=== PATIENT | male | born 1960 | race African-American/Black ===

== ENCOUNTER 2022-10-18 16:56 | Inpatient (IN) | payer MEDICARE ==
[~2022-10-18] VITALS: Ht 170.2 cm; Wt 63.5 kg
--- NOTE | 2022-10-18 17:10 | NUR ---
Patient AOx4 able to express his concerns. States he has shayla feeling warm, ?'s fevers. Patient with an ostomy in place left abdomen. Suprapubic catheter in place, states he has noticed blood in duke. Some blood visibe under the right hip/buttock, patient states he has a wound. Patient states he lives at home and has a caregiver.
[2022-10-18] MEDS: CIPROFLOXACIN IV RTU 400 MG in PREMIX 1 EA IV SCH ×2 (17:30→18:40)
[2022-10-18] MEDS ORDERED: IV NS 0.9% 1,000 ML IV ONE (17:30)
--- NOTE | 2022-10-18 18:01 | NUR ---
IV placed on right upper arm, 20g. No signs of infiltration.
[2022-10-18 18:05] LABS: BASOPHILS # (AUTO) 0.1 K/uL (0.0-0.2); BASOPHILS % (AUTO) 0.4 % (0.0-2.0); EOSINOPHILS % (AUTO) 2.1 % (0.0-6.0); HEMATOCRIT 38 % (39-51); HEMOGLOBIN 11.6 g/dL (13.5-17.5); LYMPHOCYTES # (AUTO) 0.3 K/uL (0.8-4.8); LYMPHOCYTES % (AUTO) 1.5 % (20.0-44.0); MEAN CORPUSCULAR HGB CONC 31 g/dl (31.0-36.0); MEAN CORPUSCULAR VOLUME 79 fL (80-96); MONOCYTES # (AUTO) 1.1 K/uL (0.1-1.30); MONOCYTES % (AUTO) 5.2 % (2.0-12.0); NEUTROPHILS # (AUTO) 19.6 K/uL (1.8-8.9); NEUTROPHILS % (AUTO) 90.8 % (43.0-81.0); PLATELET COUNT (AUTO) 171 K/uL (150-450); RED BLOOD CELL COUNT(AUTO) 4.76 MIL/uL (4.5-6.0); WHITE BLOOD COUNT (AUTO) 21.6 K/uL (4.3-11.0)
[2022-10-18 18:15] LABS: BILIRUBIN,URINE NEGATIVE (NEGATIVE); COLOR,URINE YELLOW (YELLOW); LEUKOCYTE ESTERASE ,URINE 2+ (NEGATIVE); NITRITE, URINE POSITIVE (NEGATIVE); PH,URINE 8.5 (5.0-8.0); PROTEIN,URINE 2+ mg/dl (NEGATIVE); UGLUCOSE NEGATIVE (NEGATIVE)
[2022-10-18 18:17] LABS: BACTERIA,URINE Moderate /HPF (None Seen); SQUAMOUS EPITHELIAL CELL,UR Few /HPF (None Seen)
--- NOTE | 2022-10-18 18:29 | NUR ---
urine collected and sent to lab
--- NOTE | 2022-10-18 18:30 | NUR ---
Called pharmacy x2, pharmacy states they are waiting on line maintenance technician to mix med.
--- NOTE | 2022-10-18 19:05 | NUR ---
REC'D REPORT FROM LETA REIS FOR OLLIE
[2022-10-18 19:07] LABS: CALCIUM, SERUM 8.1 mg/dL (8.5-10.1); CREATININE 2.9 mg/dL (0.6-1.3); POTASSIUM 4.7 mmol/L (3.5-5.1)
--- NOTE | 2022-10-18 19:19 | NUR ---
Hand off report given to Delma for continuity of care
[2022-10-18] MEDS ORDERED: MAGNESIUM HYDROXIDE 30 ML UDC PO PRN (22:00)
[2022-10-18] MEDS ORDERED: ACETAMINOPHEN 325 MG TABLET PO PRN (22:00)
[2022-10-18] MEDS ORDERED: MAG HYDROX/AL HYDROX/SIMETH 30 ML UDC PO PRN (22:00)
[2022-10-18] MEDS ORDERED: ZOLPIDEM TARTRATE 5 MG TABLET PO PRN (22:00)
[2022-10-18] MEDS ORDERED: HYDROCODONE/APAP 5/325MG TABLET PO PRN (22:00)
[2022-10-18] MEDS ORDERED: Z GUARD REMEDY 4 OZ OINT TP PRN (22:00)
[2022-10-18] MEDS ORDERED: ONDANSETRON HCL/PF 4 MG/2 ML VIAL IVP PRN (22:00)
--- NOTE | 2022-10-18 22:19 | NUR ---
REPORT GIVEN TO VINICIO, RN FOR OLLIE
[2022-10-18 22:30] VITALS: BP 122/56
--- NOTE | 2022-10-18 23:00 | NUR ---
MS QUAD STAYER NOTES - RECEIVED PATIENT FROM ED AT 2228 VIA GURNEY UNDER THE CARE OF IZAIAH DOSS NP WITH DX OF SEPSIS. PATIENT IS A/O X4, FORGETFUL. VERBALIZED HIS BROTHER HAS POA AND HIS ADVANCE DIRECTIVE. BREATHING EVEN AND NON-LABORED ON ROOM AIR. NOT IN APPARENT DISTRESS. DENIES PAIN AT THIS TIME. HAS RIGHT UPPER ARM IV ACCESS #20G AND SALINE LOCKED. NO S/S OF INFILTRATION NOTED. VITAL SIGNS TAKEN AND PHYSICAL ASSESSMENT DONE. RIGHT BUTTOCK PRESSURE INJURY WITH SOILED DRESSING NOTED. HAS SUPRAPUBIC FERRARA CATHETER AND LEFT UPPER QUADRANT COLOSTOMY BAG. ORIENTED PATIENT TO UNIT AND STAFF. ALL BELONGINGS ACCOUNTED FOR. SAFETY PRECAUTIONS IN PLACE: BED LOCKED AND IN LOW POSITION, SIDE RAILS UP X3, CALL LIGHT WITHIN REACH. WILL CONTINUE PLAN OF CARE.
[2022-10-18] MEDS: IV NS 0.9% 1,000 ML IV PRN (23:39)
[2022-10-18] MEDS ORDERED: BACL20TA PO (23:47)
--- NOTE | 2022-10-19 00:20 | NUR ---
PER HOSPITALIST ROMARIO, PATIENT WILL BE ON [facility] THERAPY. NOTED AND CARRIED OUT. CALLED [facility] AND SPOKE WITH MAYKEL TO UPDATE EMAR.
[2022-10-19 05:08] VITALS: BP 136/74
[2022-10-19 05:29] VITALS: BP 136/74
--- NOTE | 2022-10-19 07:00 | NUR ---
MS RN CLOSING NOTES - PATIENT RESTING IN BED, ABLE TO VERBALIZE NEEDS. NO CARDIAC OR RESPIRATORY DISTRESS NOTED. AFEBRILE. NO C/O PAIN AT THIS TIME. RIGHT UPPER ARM IV ACCESS INTACT, PATENT AND FLUSHING. CLOUDY KOLE URINE OUTPUT AND SOFT STOOL NOTED. RIGHT FEMORAL WOUND AND PERINEAL CARE RENDERED. ALL DUE MEDS GIVEN AND NEEDS ATTENDED. SAFETY PRECAUTIONS MAINTAINED. WILL ENDORSE TO NEXT SHIFT FOR OLLIE.
--- NOTE | 2022-10-19 07:20 | NUR ---
MS RN OPENING NOTES RECEIVED PATIENT LYING IN BED, AOX3-4 WITH SOME CONFUSION/FORGETFULNESS, ABLE TO VERBALIZE NEEDS. ON ROOM AIR WITHOUT DIFFICULTY, NO ACUTE CARDIAC OR RESPIRATORY DISTRESS NOTED AT THIS TIME, AFEBRILE. DENIES PAIN OR DISCOMFORT AT THIS TIME. IV ACCESS ON RIGHT UPPER ARM G#20, PATENT AND FLUSHING WELL. NO INFILTRATION NOTED. WITH SUPRAPUBIC CATHETER WITH INTACT DRESSING DRAINING CLOUDY KOLE URINE VIA GRAVITY. COLOSTOMY DRAINING LIQUID STOOL AT THIS MOMENT. SAFETY AND ASPIRATION PRECAUTIONS IN PLACE: BED IN LOWEST AND LOCKED POSITION, HOB ELEVATED 40 DEGREES, SIDE RAILS UP X2, CALL LIGHT WITHIN REACH. WILL MONITOR DURING MY SHIFT.
[2022-10-19 08:00] VITALS: BP 115/75
[2022-10-19] MEDS ORDERED: LEVOFLOXACIN 750 MG /D5W 150ML 750 MG in PREMIX 1 EA IV SCH (09:00)
[2022-10-19] MEDS: PANTOPRAZOLE 40 MG VIAL IV SCH (09:01)
--- NOTE | 2022-10-19 09:59 | NUR ---
RN NOTES PATIENT WAS SEEN BY WOUND CARE NURSE, TREATMENT DONE - DVT PUMP/SCD APPLIED ON BOTH LEGS WITH FOAM TO PROTECT BONY PARTS AROUND KNEES CHANGED COLOSTOMY BAG
--- NOTE | 2022-10-19 10:12 | NUR ---
WOUND CARE CONSULT: PT PRESENTS EXTREMELY THIN AND BONY WITH STAGE 4 PRESSURE ULCER TO RT BUTTOCK, EXTENSIVE SCARRING TO BACK, RT AND LEFT BUTTOCK AND SACRUM, DISCOLORATION/SCARRING TO LOWER EXTREMITIES, SUPRAPUBIC CATH AND COLOSTOMY NOTED, ALL PRESENT ON ADMISSION. DR LEWIS CALLED FOR SURGICAL CONSULT. FIRST STEP LOW AIRLOSS MATTRESS IS ON ORDER. DIETARY CONSULT IN PLACE. IN AGREEMENT WITH PLAN OF CARE. Addendum: 10/19/22 at 1014 by RAJ MACIEL WNDNU Amended: Links added.
--- NOTE | 2022-10-19 11:39 | NUR ---
RN NOTES - ARJUN AMADOR AT BEDSIDE WITH PATIENT, AWARE THAT AR/ER ON FILE (BROTHER SENTHIL) IS . ANOTHER BROTHER, KEVIN, IS THE DPOA. WILL WAIT FOR THE CALL BACK AND WILL GET THE NUMBER AND WILL GIVE TO CM AND WILL UPDATE FILE. Addendum: 10/19/22 at 1407 by LANETTE IGNACIO RN GAVE ARJUN AMADOR # OF DEVORA RENTERIAER. CM TO GIVE EMAIL ADDRESS SO BROTHER CAN SEND DP PAPERWORKS.
[2022-10-19] MEDS: ENSURE ENLIVE 237 ML LIQUID (VANILLA) PO SCH ×2 (11:49→16:14)
--- NOTE | 2022-10-19 13:14 | NUR ---
RN NOTES - URINE SPECIMEN COLLECTED, PLACED IN THE FRIDGE, CALLED LAB TO SAMPLE GRINDER
--- NOTE | 2022-10-19 13:15 | NUR ---
RN NOTES - CONSENTS SECURED FOR WOUND DEBRIDEMENT OF RIGHT ISCHIUM WITH LETA SAPP.
--- NOTE | 2022-10-19 13:16 | NUR ---
RN NOTES - CALLED ADMITTING TO UPDATE JEFF KEVIN Clayton LOZOAYER ([phone]) AR/ER.
[2022-10-19] MEDS: IV NS 0.9% 1,000 ML IV PRN (13:45)
--- NOTE | 2022-10-19 14:05 | NUR ---
RN NOTES - CONTACTED DR MILLER ABOUT BACLOFEN, APPROVED TO CONTINUE, TO SENT TO PHARMACY - FILED IN THE CHART.
[2022-10-19 14:08] LABS: BASOPHILS % (AUTO) 0.1 % (0.0-2.0); EOSINOPHILS % (AUTO) 0.5 % (0.0-6.0); HEMATOCRIT 32 % (39-51); LYMPHOCYTES # (AUTO) 0.3 K/uL (0.8-4.8); LYMPHOCYTES % (AUTO) 2.1 % (20.0-44.0); MEAN CORPUSCULAR HGB CONC 31 g/dl (31.0-36.0); MEAN CORPUSCULAR VOLUME 78 fL (80-96); MONOCYTES # (AUTO) 0.5 K/uL (0.1-1.30); MONOCYTES % (AUTO) 3.4 % (2.0-12.0); NEUTROPHILS # (AUTO) 13.3 K/uL (1.8-8.9); NEUTROPHILS % (AUTO) 93.9 % (43.0-81.0); PLATELET COUNT (AUTO) 145 K/uL (150-450); RED BLOOD CELL COUNT(AUTO) 4.12 MIL/uL (4.5-6.0); WHITE BLOOD COUNT (AUTO) 14.1 K/uL (4.3-11.0)
[2022-10-19 14:53] LABS: CALCIUM, SERUM 8.4 mg/dL (8.5-10.1); CREATININE 2.6 mg/dL (0.6-1.3); MAGNESIUM 1.4 mg/dL (1.8-2.4); PHOSPHORUS 3.8 mg/dL (2.5-4.9)
[2022-10-19 14:56] LABS: BILIRUBIN,URINE NEGATIVE (NEGATIVE); COLOR,URINE YELLOW (YELLOW); LEUKOCYTE ESTERASE ,URINE 3+ (NEGATIVE); NITRITE, URINE POSITIVE (NEGATIVE); PH,URINE 6.5 (5.0-8.0); PROTEIN,URINE 2+ mg/dl (NEGATIVE); UGLUCOSE 1+ mg/dL (NEGATIVE); UROBILINOGEN,URINE 0.2 EU/dL (0.2)
[2022-10-19 15:26] LABS: BACTERIA,URINE Many /HPF (None Seen); SQUAMOUS EPITHELIAL CELL,UR Few /HPF (None Seen)
[2022-10-19 15:27] LABS: WBC,URINE 81-100 /HPF (0-3)
--- NOTE | 2022-10-19 15:32 | NUR ---
RN NOTES - RECEIVED A CALL FROM PHARMACY ABOUT: LACTIC ACID - 3.6 (TRENDING DOWN) PROCALCITONIN - 135.[address] MILLER RIGHT AWAY.
[2022-10-19 15:38] LABS: CREATININE, URINE 42.3 MG/DL (30.0-125.0)
[2022-10-19 15:42] LABS: BILIRUBIN,DIRECT 0.2 mg/dL (0.0-0.2); BILIRUBIN,TOTAL 0.4 mg/dL (0.2-1.0)
--- NOTE | 2022-10-19 15:55 | NUR ---
RN NOTES - PT REPORTS DIZZINESS WHEN HOB IS ELEVATED EVEN SLIGHTLY, GOES INTO HYPOTENSION LOW 80/60 - PT MENTIONS THIS IS HIS BASELINE BUT IT INTERRUPTS HIS SLEEP - HE WAKES UP FEELING OVERWHELMED. WHEN LYING FLAT, BLOOD PRESSURE GOES BACK TO 120S/90S. MD IS AWARE - ORDERED TO INCREASE NS @100 ML/HR FROM 75 ML/HR. CARRIED OUT.
[2022-10-19 16:00] VITALS: BP 100/72
[2022-10-19] MEDS: BACLOFEN (10 MG) 10 MG TABLET PO PRN (16:14)
--- NOTE | 2022-10-19 17:21 | NUR ---
RN NOTES - PATIENT TEMP IS 99.2, REMOVED A LAYER OR BLANKET AND GAVE TYLENOL 650 MG PO ORDERED. WILL CONTINUE TO MONITOR.
--- NOTE | 2022-10-19 18:08 | NUR ---
RN NOTES - TEMPERATURE IS 98.2, NO FEVER
--- NOTE | 2022-10-19 18:46 | NUR ---
MS RN CLOSING NOTES PATIENT LYING IN BED, AWAKE, ALERT AOX4, ABLE TO VERBALIZE NEEDS. STILL ON ROOM AIR WITHOUT DIFFICULTY, AFEBRILE. NO PAIN OR DISCOMFORT. IVF NS @ 100 ML/HR INFUSING ON SHANNA G#20 ACCESS. URINE IS STILL CLOUDY, DRAINED ABOUT 350 ML.COLOSTOMY CHANGED ONCE DURING MY SHIFT. ALL NEEDS MET, ALL DUE MEDS GIVEN. SAFETY AND ASPIRATION PRECAUTIONS MAINTAINED: BED IN LOWEST AND LOCKED POSITION, HOB ELEVATED 40 DEGREES, SIDE RAILS UP X2, CALL LIGHT WITHIN REACH. REPOSITIONED AND OFFLOADED Q2H. WILL ENDORSE TO BRICK CLEANER NURSE.
--- NOTE | 2022-10-19 20:00 | NUR ---
RN OPENING NOTE RECEIVED PATIENT LYING IN BED; AWAKE, ALERT AND ORIENTED X 4. ABLE TO VERBALIZE NEEDS. ON ROOM AIR; TOLERATING WELL. FEBRILE. COOLING MEASURES INITIATED; PLACED ICE PACK ON ARMPIT. NO C/O PAIN OR DISCOMFORT. WITH IV ACCESS ON RIGHT UPPER ARM 20g; PATENT AND INTACT INFUSING WITH NS 1L RUNNING @ 100 ML/HR; FLUSHES WELL. WITH FERRARA CATHETER IN PLACE DRAINING BY GRAVITY TO CLOUDY YELLOW URINE OUTPUT. WITH COLOSTOMY ON LEFT UPPER QUADRANT; INTACT. SAFETY PRECAUTIONS IMPLEMENTED: CALL LIGHT AND TABLE WITHIN REACH, SIDE RAILS UP X 3, BED IN LOWEST LOCKED POSITION. WILL CONTINUE TO MONITOR THROUGHOUT SHIFT.
[2022-10-19 20:18] VITALS: BP 148/84
[2022-10-19] MEDS: THERAHONEY GEL 1.5 OZ TUBE TP SCH (21:06)
--- NOTE | 2022-10-19 21:30 | NUR ---
RN NOTE TEMP RECHECKED. AFEBRILE. 98.7. WILL CONTINUE TO MONITOR PT.
[2022-10-20] MEDS: IV NS 0.9% 1,000 ML IV PRN ×2 (04:03→14:27)
--- NOTE | 2022-10-20 07:00 | NUR ---
RN CLOSING NOTE PATIENT LYING IN BED; AWAKE, A/O X 4. STABLE ON ROOM AIR. IN NO ACUTE DISTRESS. WITH IV ACCESS ON RIGHT UPPER ARM 20g; PATENT AND INTACT INFUSING WITH NS 1L RUNNING @ 100 ML/HR; FLUSHES WELL. WITH FERRARA CATHETER IN PLACE DRAINING BY GRAVITY TO YELLOW URINE OUTPUT. WITH COLOSTOMY ON LEFT UPPER QUADRANT; INTACT. SAFETY PRECAUTIONS IN PLACE: CALL LIGHT AND TABLE WITHIN REACH, SIDE RAILS UP X 3, BED IN LOWEST LOCKED POSITION. ENDORSED TO MORNING SHIFT FOR OLLIE.
--- NOTE | 2022-10-20 07:15 | NUR ---
MS GILLETTE OPENING NOTES RECEIVED PATIENT LYING IN BED, AOX4, ON ROOM AIR WITHOUT DIFFICULTY, NO ACUTE CARDIAC OR RESPIRATORY DISTRESS NOTED AT THIS TIME, AFEBRILE. ABLE TO VERBALIZE NEEDS. DENIES PAIN AT THIS TIME. REPORTS OF FEELING COLD, COVERED PATIENT WITH WARM BLANKETS AND TURNED THE HEATER UP. IV ACCESS ON RIGHT UPPER ARM G#20, PATENT AND FLUSHING WELL. NO INFILTRATION NOTED. WITH SUPRAPUBIC CATHETER WITH INTACT DRESSING DRAINING LIGHT YELLOW URINE VIA GRAVITY. COLOSTOMY CLEAN AND INTACT, NO STOOL VISIBLE AT THIS MOMENT. SAFETY AND ASPIRATION PRECAUTIONS IN PLACE: BED IN LOWEST AND LOCKED POSITION, HOB ELEVATED 40 DEGREES, SIDE RAILS UP X2, CALL LIGHT WITHIN REACH. WILL MONITOR DURING MY SHIFT. Addendum: 10/20/22 at 0808 by LANETTE IGNACIO RN PATIENT IS ON LOW AIR LOSS MATTRESS
[2022-10-20 08:26] VITALS: BP 113/77
[2022-10-20] MEDS: ENSURE ENLIVE 237 ML LIQUID (VANILLA) PO SCH ×3 (08:32→17:04)
[2022-10-20] MEDS: PANTOPRAZOLE 40 MG VIAL IV SCH (08:34)
[2022-10-20] MEDS: THERAHONEY GEL 1.5 OZ TUBE TP SCH (08:48)
[2022-10-20 09:20] LABS: CALCIUM, SERUM 8.3 mg/dL (8.5-10.1); CREATININE 2.3 mg/dL (0.6-1.3); MAGNESIUM 1.4 mg/dL (1.8-2.4); PHOSPHORUS 3.2 mg/dL (2.5-4.9); POTASSIUM 4.3 mmol/L (3.5-5.1)
[2022-10-20 09:34] LABS: BASOPHILS % (AUTO) 0.2 % (0.0-2.0); EOSINOPHILS % (AUTO) 3.5 % (0.0-6.0); HEMATOCRIT 30 % (39-51); HEMOGLOBIN 9.4 g/dL (13.5-17.5); LYMPHOCYTES # (AUTO) 0.1 K/uL (0.8-4.8); LYMPHOCYTES % (AUTO) 1.8 % (20.0-44.0); MEAN CORPUSCULAR HGB CONC 32 g/dl (31.0-36.0); MEAN CORPUSCULAR VOLUME 78 fL (80-96); MONOCYTES # (AUTO) 0.1 K/uL (0.1-1.30); MONOCYTES % (AUTO) 1.3 % (2.0-12.0); NEUTROPHILS # (AUTO) 5.3 K/uL (1.8-8.9); NEUTROPHILS % (AUTO) 93.2 % (43.0-81.0); PLATELET COUNT (AUTO) 122 K/uL (150-450); RED BLOOD CELL COUNT(AUTO) 3.84 MIL/uL (4.5-6.0); WHITE BLOOD COUNT (AUTO) 5.7 K/uL (4.3-11.0)
[2022-10-20] MEDS: BACLOFEN (10 MG) 10 MG TABLET PO PRN (14:36)
--- NOTE | 2022-10-20 15:05 | NUR ---
RN NOTES - PATIENT REPORTS THAT HE IS AFRAID OF DOZING OFF BECAUSE HE FEELS LIKE HE IS DYING, REASSURED PT THAT HIS VITALS ARE STABLE AND THAT HE IS ON OXYGEN, ASKED MD FOR ANTI-ANXIETY MEDS BUT PT MENTIONED HE DOESNT WANT ANYTHING THAT WILL MAKE HIM FEEL RELAXED BECAUSE HE IS LOSING CONTROL. MADE MD AWARE.
--- NOTE | 2022-10-20 15:22 | NUR ---
RN NOTES - MD ORDERED PSYCH CONSULT - FACESHEET FAXED TO [facility]
[2022-10-20 16:05] VITALS: BP 96/64
--- NOTE | 2022-10-20 18:45 | NUR ---
MS RN CLOSING NOTES PATIENT LYING IN BED, AWAKE, ALERT AOX4, ABLE TO VERBALIZE NEEDS. ON 1LPM OXYGEN VIA NC FOR COMFORT, SATURATING AT 98% WITHOUT DIFFICULTY. AFEBRILE. NO PAIN OR DISCOMFORT AT THIS TIME. IVF NS @ 100 ML/HR INFUSING ON SHANNA G#20 ACCESS. URINE IS CLEAR, DRAINED ABOUT 550 ML. COLOSTOMY CHANGED ONCE DURING MY SHIFT. ON LOW AIR LOSS MATTRESS. ALL NEEDS MET, ALL DUE MEDS GIVEN. SAFETY AND ASPIRATION PRECAUTIONS MAINTAINED: BED IN LOWEST AND LOCKED POSITION, SIDE RAILS UP X2, CALL LIGHT WITHIN REACH. REPOSITIONED AND OFFLOADED Q2H. WILL ENDORSE TO WOOD CABINETMAKER NURSE.
--- NOTE | 2022-10-20 19:40 | NUR ---
RN OPENING NOTE RECEIVED PATIENT IN BED; AWAKE, ALERT AND ORIENTED X 4. ABLE TO VERBALIZE NEEDS. ON ROOM AIR; TOLERATING WELL. AFEBRILE. NOT IN ANY FORM OF RESPIRATORY OR CARDIAC DISTRESS. NO C/O PAIN OR DISCOMFORT. WITH IV ACCESS ON RIGHT UPPER ARM 20g; PATENT AND INTACT INFUSING WITH NS 1L RUNNING @ 100 ML/HR; FLUSHING WELL. WITH SUPRAPUBIC FERRARA CATHETER IN PLACE DRAINING BY GRAVITY TO CLEAR YELLOW URINE OUTPUT. WITH COLOSTOMY ON LEFT UPPER QUADRANT; INTACT. SAFETY PRECAUTIONS IMPLEMENTED: CALL LIGHT AND TABLE WITHIN REACH, SIDE RAILS UP X 3, BED IN LOWEST LOCKED POSITION. WILL CONTINUE TO MONITOR THROUGHOUT SHIFT.
[2022-10-20 20:00] VITALS: BP 115/70
[2022-10-20 23:23] LABS: BAND % (MANUAL) 6 % (0.0-5.0); BASOPHILS % (MANUAL) 0 % (0.0-2.0); EOSINOPHILS % (MANUAL) 5 % (0-4); LYMPHOCYTES % (MANUAL) 3 % (16-48); MONOCYTES % (MANUAL) 2 % (0-11.0); NEUTROPHILS % (MANUAL) 84 (42-76)
[2022-10-21] MEDS: IV NS 0.9% 1,000 ML IV PRN ×2 (01:38→14:09)
--- NOTE | 2022-10-21 06:45 | NUR ---
RN CLOSING NOTE PATIENT LYING IN BED; AWAKE, A/O X 4. ON O2 INHALATION @ 1 LPM VIA NC; TOLERATING WELL. IN NO ACUTE DISTRESS. WITH IV ACCESS ON RIGHT UPPER ARM 20g; PATENT AND INTACT INFUSING WITH NS 1L RUNNING @ 100 ML/HR; FLUSHES WELL. WITH FERRARA CATHETER IN PLACE DRAINING BY GRAVITY TO YELLOW URINE OUTPUT. WITH COLOSTOMY ON LEFT UPPER QUADRANT; INTACT. SAFETY PRECAUTIONS IN PLACE: CALL LIGHT AND TABLE WITHIN REACH, SIDE RAILS UP X 3, BED IN LOWEST LOCKED POSITION. ENDORSED TO MORNING SHIFT FOR OLLIE.
--- NOTE | 2022-10-21 07:00 | NUR ---
MS RN OPENING NOTES RECEIVED PATIENT LYING IN BED, AOX2-3 WITH EPISODES OF CONFUSION/FORGETFULNESS, ABLE TO VERBALIZE NEEDS. ON ROOM AIR TOLERATING WELL, FEVERISH -LOW GRADE FEVER 102F. DENIES PAIN OR DISCOMFORT AT THIS TIME. IV ACCESS ON RIGHT UPPER ARM G#20, PATENT AND FLUSHING WELL. WITH SUPRAPUBIC CATHETER WITH INTACT DRESSING DRAINING CLOUDY KOLE URINE VIA GRAVITY. COLOSTOMY DRAINING LIQUID STOOL. SAFETY AND ASPIRATION PRECAUTIONS IN PLACE: BED IN LOWEST AND LOCKED POSITION, SIDE RAILS UP X3, CALL LIGHT WITHIN REACH. WILL MONITOR DURING MY SHIFT.
[2022-10-21 07:07] LABS: BASOPHILS % (AUTO) 0.1 % (0.0-2.0); EOSINOPHILS % (AUTO) 4.9 % (0.0-6.0); HEMATOCRIT 30 % (39-51); HEMOGLOBIN 9.3 g/dL (13.5-17.5); LYMPHOCYTES # (AUTO) 0.1 K/uL (0.8-4.8); LYMPHOCYTES % (AUTO) 6.8 % (20.0-44.0); MEAN CORPUSCULAR HGB CONC 31 g/dl (31.0-36.0); MEAN CORPUSCULAR VOLUME 79 fL (80-96); MONOCYTES % (AUTO) 1.7 % (2.0-12.0); NEUTROPHILS # (AUTO) 1.6 K/uL (1.8-8.9); NEUTROPHILS % (AUTO) 86.5 % (43.0-81.0); PLATELET COUNT (AUTO) 88 K/uL (150-450); RED BLOOD CELL COUNT(AUTO) 3.76 MIL/uL (4.5-6.0)
--- NOTE | 2022-10-21 07:09 | NUR ---
RN NOTES: RECEIVED A CALL FROM ESPERANZA WBC 1.8, REPORTED TO DR MILLER AND WAITING FOR RESPONSE. REPORTED THAT HAVING LOW GRADE FEVER 100.2.
[2022-10-21 07:26] LABS: WHITE BLOOD COUNT (AUTO) 1.8 K/uL (4.3-11.0)
[2022-10-21] MEDS: ENSURE ENLIVE 237 ML LIQUID (VANILLA) PO SCH ×3 (07:43→16:38)
[2022-10-21 08:00] VITALS: BP 127/75
[2022-10-21] MEDS: PANTOPRAZOLE 40 MG VIAL IV SCH (08:28)
[2022-10-21] MEDS: THERAHONEY GEL 1.5 OZ TUBE TP SCH (08:29)
[2022-10-21 08:34] LABS: CALCIUM, SERUM 8.5 mg/dL (8.5-10.1); CREATININE 2.5 mg/dL (0.6-1.3); MAGNESIUM 1.4 mg/dL (1.8-2.4); PHOSPHORUS 3.1 mg/dL (2.5-4.9); POTASSIUM 4.3 mmol/L (3.5-5.1)
[2022-10-21] MEDS ORDERED: LEVOFLOXACIN 500 MG /D5W 100ML 500 MG in PREMIX 1 EA IV SCH (09:00)
[2022-10-21] MEDS ORDERED: MAGNESIUM OXIDE 400 MG TABLET PO SCH (10:30)
[2022-10-21 16:00] VITALS: BP 90/52
--- NOTE | 2022-10-21 17:00 | NUR ---
RN NOTES: WOUND CARE DONE AND CHANGED COLOSTOMY BAG.
--- NOTE | 2022-10-21 18:44 | NUR ---
MS RN CLOSING NOTES PATIENT LYING IN BED, A/OX2-3 WITH EPISODES OF CONFUSION/FORGETFULNESS, ABLE TO VERBALIZE NEEDS. ON O2 INHALATION @2LPM VIA NC FOR COMFORT. DENIES PAIN OR DISCOMFORT AT THIS TIME. TURNED Q 2HRS. WOUND CARE DONE.IV ACCESS ON RIGHT UPPER ARM G#20, PATENT AND FLUSHING WELL. WITH SUPRAPUBIC CATHETER WITH INTACT DRESSING DRAINING CLOUDY KOLE URINE VIA GRAVITY. COLOSTOMY DRAINING LIQUID STOOL. SAFETY AND ASPIRATION PRECAUTIONS IN PLACE: BED IN LOWEST AND LOCKED POSITION, SIDE RAILS UP X2, CALL LIGHT WITHIN REACH. ENDORSED TO INBOUND TELEMARKETER RN FOR OLLIE.
--- NOTE | 2022-10-21 19:00 | NUR ---
RN OPENING NOTE RECEIVED PATIENT AWAKE, TALKING TO HIMSELF IN BED. A/OX 3-4. PT IS IN O2 INHALATION VIA [employer] CANNULA @ 2LPM, TOLERATING WELL, BREATHING EVEN AND UNLABORED @ THIS TIME. PT IV PRESENT ON RIGHT UPPER ARM #20G RUNNING NS @100MLS/HR, PATENT, INTACT AND FLUSHES WELL. PT COLOSTOMY BAG PRESENT, NO FECAL WASTE OF THIS TIME. PT HAS SUPRAPUBIC CATHETER IN PLACE DRAINING CLEAR YELLOW URINE. SAFETY MEASURE IS IN PLACE. BED AT ITS LOWEST AND LOCK POSITION. SIDE RAILS UP X 3. BEDSIDE TABLE AND CALL LIGHT IS EASY REACH. BED ALARM IS ON. WILL CONTINUE TO MONITOR PT ACCORDINGLY.
[2022-10-21 20:00] VITALS: BP 156/101
[2022-10-22] MEDS: IV NS 0.9% 1,000 ML IV PRN ×2 (00:56→11:23)
[2022-10-22 01:36] LABS: BAND % (MANUAL) 8 % (0.0-5.0); EOSINOPHILS % (MANUAL) 4 % (0-4); LYMPHOCYTES % (MANUAL) 4 % (16-48); MONOCYTES % (MANUAL) 3 % (0-11.0); NEUTROPHILS % (MANUAL) 81 (42-76)
[2022-10-22 05:44] LABS: BASOPHILS % (AUTO) 0.2 % (0.0-2.0); EOSINOPHILS % (AUTO) 8.9 % (0.0-6.0); HEMATOCRIT 26 % (39-51); HEMOGLOBIN 8.3 g/dL (13.5-17.5); LYMPHOCYTES # (AUTO) 0.2 K/uL (0.8-4.8); LYMPHOCYTES % (AUTO) 2.7 % (20.0-44.0); MEAN CORPUSCULAR HGB CONC 32 g/dl (31.0-36.0); MEAN CORPUSCULAR VOLUME 78 fL (80-96); MONOCYTES # (AUTO) 0.4 K/uL (0.1-1.30); MONOCYTES % (AUTO) 4.7 % (2.0-12.0); NEUTROPHILS # (AUTO) 6.4 K/uL (1.8-8.9); NEUTROPHILS % (AUTO) 83.5 % (43.0-81.0); PLATELET COUNT (AUTO) 72 K/uL (150-450); RED BLOOD CELL COUNT(AUTO) 3.32 MIL/uL (4.5-6.0); WHITE BLOOD COUNT (AUTO) 7.6 K/uL (4.3-11.0)
[2022-10-22 06:00] LABS: CALCIUM, SERUM 8.2 mg/dL (8.5-10.1); CREATININE 2.2 mg/dL (0.6-1.3); MAGNESIUM 1.3 mg/dL (1.8-2.4); PHOSPHORUS 1.8 mg/dL (2.5-4.9); POTASSIUM 3.9 mmol/L (3.5-5.1)
--- NOTE | 2022-10-22 06:00 | NUR ---
COLOSTOMY BAG REMOVED W/ 250 ML FECAL WASTE. NEW APPLIANCE IN PLACE. NO LEAK NOTED. PT KEPT CLEAN AND DRY. WILL CONTINUE TO MONITOR.
--- NOTE | 2022-10-22 06:36 | NUR ---
RN CLOSING NOTE PATIENT AWAKE AND RESTING COMFORTABLY IN BED. A/OX 4. PT IS IN O2 INHALATION VIA NASAL CANNULA @ 1LPM,W/ NO RESPIRATORY DISTRESS, O2 SAT 99% @ THIS TIME. PT IV PRESENT ON RIGHT UPPER ARM #20G RUNNING NS @100MLS/HR, PATENT, INTACT AND FLUSHES WELL, W/ NO S & SX OF INFILTRATION. PT COLOSTOMY BAG PRESENT, NO LEAK NOTED @ THIS TIME. PT HAS SUPRAPUBIC CATHETER IN PLACE DRAINING CLEAR YELLOW URINE WITH OUTPUT OF 300CC. SAFETY MEASURE IS IN PLACE. BED AT ITS LOWEST AND LOCK POSITION. SIDE RAILS UP X 3. BEDSIDE TABLE AND CALL LIGHT IS EASY REACH. BED ALARM IS ON. WILL ENDORSE TO THE NEXT SHIFT FOR CONTINUITY OF CARE.
[2022-10-22 07:00] VITALS: BP 98/64
--- NOTE | 2022-10-22 07:40 | NUR ---
RN OPENING NOTE PATIENT AWAKE AND RESTING COMFORTABLY IN BED. A/OX 4. PT IS IN O2 INHALATION VIA NASAL CANNULA @ 1LPM,W/ NO RESPIRATORY DISTRESS, O2 SAT 98% @ THIS TIME. PT IV PRESENT ON RIGHT UPPER ARM #20G RUNNING NS @100MLS/HR, PATENT, INTACT AND FLUSHES WELL, W/ NO S & SX OF INFILTRATION. PT COLOSTOMY BAG PRESENT, NO LEAK NOTED @ THIS TIME. PT HAS SUPRAPUBIC CATHETER IN PLACE DRAINING CLEAR YELLOW URINE . SAFETY MEASURE IS IN PLACE. BED AT ITS LOWEST AND LOCK POSITION. SIDE RAILS UP X 3. BEDSIDE TABLE AND CALL LIGHT IS EASY REACH. BED ALARM IS ON. WILL CONTINUE TO MONITOR.
[2022-10-22] MEDS: ENSURE ENLIVE 237 ML LIQUID (VANILLA) PO SCH ×3 (08:43→17:10)
[2022-10-22] MEDS: PANTOPRAZOLE 40 MG TABLET.DR PO SCH (09:38)
[2022-10-22 09:48] LABS: BAND % (MANUAL) 5 % (0.0-5.0); NEUTROPHILS % (MANUAL) 82 (42-76)
[2022-10-22 09:49] LABS: BASOPHILS % (MANUAL) 0 % (0.0-2.0); EOSINOPHILS % (MANUAL) 5 % (0-4); LYMPHOCYTES % (MANUAL) 3 % (16-48); MONOCYTES % (MANUAL) 5 % (0-11.0)
[2022-10-22] MEDS: THERAHONEY GEL 1.5 OZ TUBE TP SCH (09:59)
[2022-10-22] MEDS: Magnesium 1GM/D5W 100ML PREMIX 100 ML IV SCH ×2 (10:41→11:16)
[2022-10-22] MEDS ORDERED: NEUTRA PHOS 1 POWD.PACKET PO ONE (11:00)
[2022-10-22] MEDS: QUETIAPINE FUMARATE 25 MG TABLET PO SCH ×2 (15:15→17:10)
[2022-10-22 16:00] VITALS: BP 81/56
[2022-10-22] MEDS: VANCOMYCIN 0.75 GM in IV D5W 250 ML IV SCH (18:45)
--- NOTE | 2022-10-22 19:00 | NUR ---
RN OPENING NOTE RECEIVED REPORT FROM NURSE JAROD. PT IS AWAKE ON BED. A/O X 4. PT IS IN RA TOLERATING WELL, BREATHING EVEN AND UNLABORED @ THIS TIME. PT'S IV PRESENT ON RIGHT UPPER ARM #20G, INTACT, PATENT AND FLUSHES WELL W/ NO INFILTRATION OBSERVED @ THIS TIME. PT SUPRAPUBIC FERRARA CATHETER IS IN PLACE DRAINING CLEAR YELLOW URINE WITH AN OUTPUT OF 80CC. PT COLOSTOMY BAG IS IN PLACE WITH FECAL WASTE OF 10CC. SAFETY MEASURES IS IN PLACE. BED IS IN LOWEST AND LOCK POSITION. SIDE RAILS UP X 3. BEDSIDE TABLE AND CALL LIGHT IS EASY REACH. BED ALARM IS ON. WILL CONTINUE TO MONITOR PT ACCORDINGLY.
--- NOTE | 2022-10-22 19:06 | NUR ---
RN CLOSING NOTE PATIENT AWAKE AND RESTING COMFORTABLY IN BED. A/OX 4. PT IS IN O2 INHALATION VIA NASAL CANNULA @ 1LPM,W/ NO RESPIRATORY DISTRESS, O2 SAT 99% @ THIS TIME. PT IV PRESENT ON RIGHT UPPER ARM #20G RUNNING NS @100MLS/HR, PATENT, INTACT AND FLUSHES WELL, W/ NO S & SX OF INFILTRATION. PT COLOSTOMY BAG PRESENT, NO LEAK NOTED @ THIS TIME. PT HAS SUPRAPUBIC CATHETER IN PLACE DRAINING CLEAR YELLOW URINE, ALL DUE MEDS GIVEN, WOUND CARE RENDERED.2 HOURLY TURNING DONE, KEPT PATIENT CLEAN AND COMFORTABLE. SAFETY MEASURE IS IN PLACE. BED AT ITS LOWEST AND LOCK POSITION. SIDE RAILS UP X 3. BEDSIDE TABLE AND CALL LIGHT IS EASY REACH. BED ALARM IS ON. WILL ENDORSE TO THE NEXT SHIFT FOR CONTINUITY OF CARE.
[2022-10-22 20:00] VITALS: BP 94/58
[2022-10-22 20:08] VITALS: BP 94/58
[2022-10-22 22:00] VITALS: BP 143/86
[2022-10-22 22:45] VITALS: BP 94/58
[2022-10-23] VITALS (67 sets, daily range): BP systolic 55–148; BP diastolic 36–82
[2022-10-23] MEDS: IV NS 0.9% 1,000 ML IV PRN ×3 (00:15→19:05)
--- NOTE | 2022-10-23 05:00 | NUR ---
PT HAS A ALTERED CONDITION. PT IS LETHARGIC. VITALS SIGNS TAKEN. BP 64/35. MANUAL BP IS 65/40. O2 IS 71. PULSE IS 71 BPM. INCREASE O2 VIA NASAL CANNULA TO 4LPM. GLUCOSE IS 98. CHARGE NURSE IS INFORMED AND NOTIFIED. WILL CONTINUE TO MONITOR PT.
--- NOTE | 2022-10-23 05:10 | NUR ---
INSERTED MIDLINE TO PT. CALLED EPIC TO PAGE DR. DOSS.
--- NOTE | 2022-10-23 05:15 | NUR ---
RECEIVED VERBAL ORDER FROM DR. DOSS TO GIVE IVF BOLUS OF 1L /HR.
--- NOTE | 2022-10-23 05:16 | NUR ---
START IVF BOLUS OF 1L/HR TO PT.
--- NOTE | 2022-10-23 05:20 | NUR ---
PT IS ON TELE MONITOR WITH CURRENT READING OF SINUS RHYTHM. WILL CONTINUE TO MONITOR PT.
--- NOTE | 2022-10-23 05:25 | NUR ---
INFORMED DR. DOSS PT CONDITION IS NOT IMPROVING. ORDERED PT'S TRANSFER TO ICU, STAT. Addendum: 10/23/22 at 0632 by PERFECTO RAUSCH RN CHARGE NURSE IS INFORMED AND NOTIFIED.
[2022-10-23] MEDS ORDERED: NOREPINEPHRINE 8MG/250ML RTU 250 ML IV ONE (06:12)
[2022-10-23 06:23] LABS: ABG BASE EXCESS -8.8 mmol/L; ABG OXYGEN SATURATION 95.8 % (92.0-98.5); ABG PCO2 43.8 mmHg (35.0-45.0); ABG PH 7.234 (7.350-7.450); ABG PO2 89.2 mmHg (75.0-100.0); AaDO2 116.7 mmHg; COHb 0.2 % (0.5-1.5); MetHb 0.7 % (0.0-1.5); O2Hb 94.9 % (94.0-97.0); SITE, ABG Left Radial; VENT MODE, BG 4L N/C
--- NOTE | 2022-10-23 06:25 | NUR ---
IVF 700ML GIVEN TO PT @ 1L/HR. PT TRANSFERRED TO ICU. REPORT GIVEN TO ICU CHARGE NURSE. BP IS 64/35, PULSE RATE IS 81, 02 SAT IS 100, SUGAR 92 @ THIS TIME. PT IS ON TELE MONITOR WITH A CURRENT READING OF SINUS RHYTHM, HEART RATE OF 81.
[2022-10-23] MEDS ORDERED: NOREPINEPHRINE 8 MG in IV NS 0.9% 242 ML IV PRN (06:30)
[2022-10-23] MEDS: NOREPINEPHRINE 8 MG in IV NS 0.9% 242 ML IV PRN (06:36)
--- NOTE | 2022-10-23 06:37 | NUR ---
ACTUARIAL SCIENCE TEACHER PT WAS TRANSFERRED FROM [facility] @ 6 A.M. WITH DIAGNOSIS HYPOTENSION. PT IS CONFUSED, DISORIENTED. HE IS QUADRIPLEGIC. BOLUS 1 L WAS GIVEN ON THE FLOOR. STARTED LEVOPHED DRIP /TITRATED TO KEEP SBP>90/ .WILL CONTINUE CLOSE MONITORING.
--- NOTE | 2022-10-23 07:00 | NUR ---
RN NOTES RECEIVED PT ON BED, RESPONDS TO VERBAL STIMULI , ORIENTED x1, ON TELE , SR HR IN 80'S , PT HAVING ABD BREATHING, O2 SAT IN LOW 90'S , SUPRAPUBIC CATH DRAINING TO GRAVITY, COLOSTOMY INTACT, IVF NS AT 100CC/HR RUNNING , LEVO AT 0.1 MCG/KG/MIN INFUSING FOR BP SUPPORT, DR BAXTER NOTIFIED REGARDING ABG RESULTS, ORDER RECEIVED TO PLACE PT ON BIPAP . CONTINUE TO MONITOR.
--- NOTE | 2022-10-23 07:30 | NUR ---
pt. placed into bipap per dr. hauser due to increased work of breathing with settings below as ordered: ipap 15 epap 5 rate 12 fio2 40% breath sounds diminished bilateral. bipap plugged into red outlet with alarms on and functioning. bvm @ bedside. Addendum: 10/23/22 at 0746 by SAJAN HARRIS RT Amended: Links added.
--- NOTE | 2022-10-23 07:44 | NUR ---
late entry placed mepilex between nose bridge and bipap mask to prevent skin sore. Addendum: 10/23/22 at 1416 by SAJAN HARRIS RT Amended: Links added.
[2022-10-23] MEDS: ENSURE ENLIVE 237 ML LIQUID (VANILLA) PO SCH ×3 (08:00→16:49)
[2022-10-23] MEDS: QUETIAPINE FUMARATE 25 MG TABLET PO SCH ×2 (08:14→16:49)
[2022-10-23] MEDS: PANTOPRAZOLE 40 MG TABLET.DR PO SCH (08:14)
[2022-10-23] MEDS: THERAHONEY GEL 1.5 OZ TUBE TP SCH (08:15)
[2022-10-23 08:33] LABS: EOSINOPHILS % (AUTO) 4.2 % (0.0-6.0); HEMATOCRIT 26 % (39-51); HEMOGLOBIN 8.3 g/dL (13.5-17.5); LYMPHOCYTES # (AUTO) 0.3 K/uL (0.8-4.8); LYMPHOCYTES % (AUTO) 2.2 % (20.0-44.0); MEAN CORPUSCULAR HGB CONC 31 g/dl (31.0-36.0); MEAN CORPUSCULAR VOLUME 77 fL (80-96); MONOCYTES # (AUTO) 0.4 K/uL (0.1-1.30); NEUTROPHILS # (AUTO) 13.1 K/uL (1.8-8.9); NEUTROPHILS % (AUTO) 90.6 % (43.0-81.0); RED BLOOD CELL COUNT(AUTO) 3.42 MIL/uL (4.5-6.0); WHITE BLOOD COUNT (AUTO) 14.5 K/uL (4.3-11.0)
[2022-10-23 08:40] LABS: ALBUMIN 1.6 g/dL (3.4-5.0); BILIRUBIN,TOTAL 0.6 mg/dL (0.2-1.0); CREATININE 2.1 mg/dL (0.6-1.3); MAGNESIUM 1.8 mg/dL (1.8-2.4); PHOSPHORUS 2.3 mg/dL (2.5-4.9); POTASSIUM 3.9 mmol/L (3.5-5.1)
[2022-10-23 09:09] LABS: PLATELET COUNT (AUTO) 41 K/uL (150-450)
[2022-10-23 09:17] LABS: BAND % (MANUAL) 10 % (0.0-5.0); EOSINOPHILS % (MANUAL) 2 % (0-4); LYMPHOCYTES % (MANUAL) 2 % (16-48); METAMYELOCYTES % 1 % (0-0); MONOCYTES % (MANUAL) 2 % (0-11.0); MYELOCYTES % 1 % (0-0); NEUTROPHILS % (MANUAL) 82 (42-76)
[2022-10-23 09:52] LABS: ABG OXYGEN SATURATION 97.7 % (92.0-98.5); ABG PCO2 35.1 mmHg (35.0-45.0); ABG PH 7.295 (7.350-7.450); ABG PO2 109.8 mmHg (75.0-100.0); COHb 0.3 % (0.5-1.5); MetHb 0.1 % (0.0-1.5); O2Hb 97.3 % (94.0-97.0); SITE, ABG Right Brachial
[2022-10-23] MEDS ORDERED: SODIUM BICARBONATE SYR 50 MEQ/50 ML DISP.SYRIN IV ONE (10:30)
--- NOTE | 2022-10-23 11:00 | NUR ---
RN NOTES DR WHYTE NOTIFIED REGARDING ABG RESULTS. PT WILL STAY ON BIPAP , FIO2 30%
[2022-10-23] MEDS: SUCRALFATE 1 G TABLET PO SCH ×3 (11:18→21:23)
--- NOTE | 2022-10-23 11:18 | NUR ---
RN NOTES PT ON BIPAP , PO MEDS HELD PER ORDER
[2022-10-23] MEDS: MEROPENEM 500 MG in IV NS 0.9% 50 ML IV SCH ×2 (11:38→22:51)
[2022-10-23] MEDS ORDERED: MEROPENEM 500 MG in IV NS 0.9% 50 ML IV SCH (13:00)
[2022-10-23] MEDS ORDERED: K PHOS NEUTRAL 250 MG TABLET PO ONE (15:30)
[2022-10-23] MEDS ORDERED: Sodium Phosphate 15 MMOL in IV NS 0.9% 245 ML IV ONE (16:00)
[2022-10-23] MEDS: VANCOMYCIN 0.75 GM in IV D5W 250 ML IV SCH (17:23)
--- NOTE | 2022-10-23 18:33 | NUR ---
RN NOTE PT REMAINS ON BIPAP, ON LEVO AT .06 MCG/KG/MIN, RESPONDS TO VERBAL STIMULI, ON TELE SR HR IN 60'S , COLOSTOMY BAG INTACT, PT IS NPO , IV SITES CDI, WILL ENDORSE TO COMPUTER METHODS ANALYST NURSE FOR CONTINUITY OF CARE .
--- NOTE | 2022-10-23 20:47 | NUR ---
WORKFORCE DEVELOPMENT VICE PRESIDENT OPENING NOTE PT RECEIVED IN BED, AWAKE, ALERT. PT ON BIPAP WITH SETTING OF 15/5, RATE 12, FIO2 30% WITH CURRENT O2SAT OF 99%; NO S/S OF RESP DISTRESS, NO SOB, NON-LABORED AND EQUAL BREATHING. PT ATTACHED TO BEDSIDE MONITOR, SR WITH HR OF 63. COLOSTOMY INTACT AND PATENT WITH NO SIGNS OF LEAKING, DRAINING LOOSE AND BROWN STOOL. SUPRAPUBIC CATHETER INTACT AND PATENT, DRAINING CLOUDY AND YELLOW URINE. IV ACCESSS ON SHANNA MIDLINE AND LAC 20G INTACT AND PATENT, FLUSHES EASILY WITH NO RESISTANCE; LEVO CURRENTLY AT 0.06 MCG/KG/MIN, NS AT 100 ML/HR. BED IN LOWEST POSITION, CALL LIGHT WITHIN REACH, SIDE RAILS UP X3. WILL CONTINUE TO MONITOR THROUGHOUT THE NIGHT.
--- NOTE | 2022-10-23 21:16 | NUR ---
RN NOTE UNABLE TO TAKE AXILLARY TEMP NOR RECTAL TEMP RECTUM IS CLOSED. TEMPORAL SCAN TEMP TAKEN WITH RESULT OF 95.5F. RAZIA BRIGHT APPLIED TO PT; RAZIA BRIGHT PRN ORDERED.
[2022-10-23] MEDS: FAMOTIDINE/PF INJ 20 MG/2 ML VIAL IV SCH (21:23)
[2022-10-24] VITALS (104 sets, daily range): BP systolic 61–156; BP diastolic 37–111
[2022-10-24] MEDS: IV NS 0.9% 1,000 ML IV PRN ×2 (04:56→14:30)
[2022-10-24 05:22] LABS: ABG BASE EXCESS -8.9 mmol/L; ABG OXYGEN SATURATION 98.4 % (92.0-98.5); ABG PH 7.339 (7.350-7.450); ABG PO2 136.1 mmHg (75.0-100.0); AaDO2 42.6 mmHg; COHb 0.1 % (0.5-1.5); MetHb 0.3 % (0.0-1.5); SITE, ABG Right Brachial; VENT MODE, BG ST 15/5 12 30%
[2022-10-24 05:57] LABS: BASOPHILS % (AUTO) 0.1 % (0.0-2.0); EOSINOPHILS % (AUTO) 2.2 % (0.0-6.0); HEMATOCRIT 29 % (39-51); HEMOGLOBIN 9.1 g/dL (13.5-17.5); LYMPHOCYTES # (AUTO) 0.2 K/uL (0.8-4.8); LYMPHOCYTES % (AUTO) 1.4 % (20.0-44.0); MEAN CORPUSCULAR HGB CONC 32 g/dl (31.0-36.0); MEAN CORPUSCULAR VOLUME 77 fL (80-96); MONOCYTES # (AUTO) 0.4 K/uL (0.1-1.30); MONOCYTES % (AUTO) 2.9 % (2.0-12.0); NEUTROPHILS # (AUTO) 11.6 K/uL (1.8-8.9); NEUTROPHILS % (AUTO) 93.4 % (43.0-81.0); RED BLOOD CELL COUNT(AUTO) 3.73 MIL/uL (4.5-6.0); WHITE BLOOD COUNT (AUTO) 12.4 K/uL (4.3-11.0)
[2022-10-24 06:31] LABS: ALBUMIN 1.5 g/dL (3.4-5.0); BILIRUBIN,TOTAL 0.6 mg/dL (0.2-1.0); CALCIUM, SERUM 8.4 mg/dL (8.5-10.1); CREATININE 2.2 mg/dL (0.6-1.3); MAGNESIUM 1.9 mg/dL (1.8-2.4); PHOSPHORUS 4.8 mg/dL (2.5-4.9); POTASSIUM 4.1 mmol/L (3.5-5.1); TOTAL PROTEIN, SERUM 4.9 g/dL (6.4-8.2)
--- NOTE | 2022-10-24 06:39 | NUR ---
HIGH DENSITY PRESS OPERATOR CLOSING NOTE PT REMAINS IN BED, AWAKE, ALERT; CALM, COOPERATIVE. RAZIA HUGGER REMAINS IN PLACE WITH TLOW NOTED TO BE 95.5 AND MOST CURRENT TEMP OF 96.9. CONTINUES TO BE ON BIPAP WITH SAME SETTINGS; TOLERATED WELL WITH O2SAT RANGING FROM 94%-100%; NO S/S OF RESP DISTRESS, NO SOB, NON-LABORED AND EQUAL BREATHING. ATTACHED TO BEDSIDE MONITOR, SR-ST WITH HR RANGING FROM 61-129. OSTOMY PINK AND MOIST, DRAINING BROWN AND LIQUID STOOL. SUPRAPUBIC CATHETER INTACT AND PATENT, DRAINING CLOUDY AND YELLOW URINE. SHANNA MIDLINE INTACT AND PATENT, FLUSHES EASILY WITH NO RESISTANCE; LEVO CURRENTLY AT 0.04 MCG/KG/MIN AND NS AT 100 ML/HR. WOUNDS CLEANSED AND NEW DRESSINGS APPLIED. ALL DUE MEDS ADMINISTERED DURING THE NIGHT. BED IN LOWEST POSITION, CALL LIGHT WITHIN REACH, SIDE RAILS UP X3. WILL ENDORSE TO DAYSHIFT NURSE TO CONTINUE CARE.
[2022-10-24 06:44] LABS: PLATELET COUNT (AUTO) 36 K/uL (150-450)
--- NOTE | 2022-10-24 06:46 | NUR ---
RN NOTE RECEIVED CRITICAL FROM LAB. PLTS 36, TRENDING DOWN FROM 41; NO SIGNS OF BLEEDING. IZAIAH DOSS INFORMED. AWAITING RESPONSE.
--- NOTE | 2022-10-24 07:27 | NUR ---
SPOKE WITH MALE PHARMACIST REGARDING LEVO BAG SUPPLY AND MADE AWARE THAT THE CURRENT BAG IS BEYOND 24HRS, PER PHARMACIST "I WILL SEND IT."
[2022-10-24] MEDS: SUCRALFATE 1 G TABLET PO SCH ×4 (07:30→21:13)
--- NOTE | 2022-10-24 07:50 | NUR ---
RT PATIENT REMOVED FROM BIPAP AND PLACED ON 4L NC LA WELL. Addendum: 10/24/22 at 1214 by LIS MAN RT Amended: Links added.
[2022-10-24] MEDS: ENSURE ENLIVE 237 ML LIQUID (VANILLA) PO SCH ×3 (07:57→17:00)
--- NOTE | 2022-10-24 08:10 | NUR ---
FOLLOW UP (SECOND TIME) MADE WITH VIKTORIYA-PHARMACIST REGARDING LEVO IV BAG, PER VIKTORIYA " I WILL HAVE IT DELIVERED." CHARGE NURSE-ROSA KENDRICK
[2022-10-24] MEDS: NOREPINEPHRINE 8 MG in IV NS 0.9% 242 ML IV PRN (08:37)
[2022-10-24] MEDS: QUETIAPINE FUMARATE 25 MG TABLET PO SCH ×2 (08:56→17:00)
[2022-10-24] MEDS: FAMOTIDINE/PF INJ 20 MG/2 ML VIAL IV SCH ×2 (08:58→21:10)
[2022-10-24] MEDS: THERAHONEY GEL 1.5 OZ TUBE TP SCH (08:58)
[2022-10-24] MEDS: MEROPENEM 500 MG in IV NS 0.9% 50 ML IV SCH ×2 (11:00→23:08)
--- NOTE | 2022-10-24 12:48 | NUR ---
COUNTY DIRECTOR WELFARE-ROWENA SEEN PT. NOW AND AWARE OF RECENT LAB RESULTS AND LOW PLATELETS=36, NO ORDER MADE REGARDING THIS, HOWEVER , COUNTY DIRECTOR WELFARE NEW ORDER OF SWALLOW EVAL.
[2022-10-24 15:24] LABS: LYMPHOCYTES % (MANUAL) 1 % (16-48); MONOCYTES % (MANUAL) 1 % (0-11.0); NEUTROPHILS % (MANUAL) 98 (42-76)
--- NOTE | 2022-10-24 16:03 | NUR ---
KATALINA GUAMAN WAS NOTIFIED OF THE BLOOD CX RESULT, NO ORDER MADE AT THIS TIME.
--- NOTE | 2022-10-24 16:58 | NUR ---
KATALINA GUAMAN WAS NOTIFIED OF THE HR FLUCTUATES FROM 120-150s, BP 96/66, BOTTOM CEMENTER NO NEW ORDER MADE. CHARGE NURSE-ROSA AWARE.
[2022-10-24] MEDS: VANCOMYCIN 0.75 GM in IV D5W 250 ML IV SCH (18:16)
--- NOTE | 2022-10-24 20:00 | NUR ---
Received patient awake oriented to self otherwise confused.Reoriented.Respiration even and unlabored.With O2 4LNC well tolerated.Saturation 98-99%.SR/SB 50'S with Levophed gtt infusing for BP support and will titrate per protocol. NPO status for swallow eval in AM.IVF infusing.SPC draining yellow urine.Colostomy active.Turned and repositioned to comfort.Plan of care reinforced.Continue monitoring.
[2022-10-24] MEDS ORDERED: FAMOTIDINE/PF INJ 20 MG/2 ML VIAL IV ONE (21:04)
[2022-10-25] VITALS (99 sets, daily range): BP systolic 52–165; BP diastolic 21–108
[2022-10-25] MEDS: IV NS 0.9% 1,000 ML IV PRN ×3 (00:32→21:05)
[2022-10-25 03:52] LABS: CALCIUM, SERUM 8.2 mg/dL (8.5-10.1); CREATININE 2.1 mg/dL (0.6-1.3); POTASSIUM 3.6 mmol/L (3.5-5.1)
--- NOTE | 2022-10-25 06:00 | NUR ---
0547 Patient had an episode of Afib with RVR 120-140'S for less than [address] converted to [address] 130's without any intervention.Levophed gtt infusing .No acute distress noted.Turned and repositioned
--- NOTE | 2022-10-25 06:55 | NUR ---
RN OPENING NOTES RECEIVED REPORT FROM [facility] LETA BRYAN. PATIENT ON 4 LITERS NASAL CANULA SATURATION AT 100%. SINUS TACHYCARDIC ON MONITOR THIS MORNING. PATIENT REPORTING PAIN. PRIMARY PROVIDER AWARE PENING ORDER FOR IVP MORPHINE. PATIENT IS NPO. COLOSTOMY INTACT. DRAINING OUTPUT FROM SUPRAPUBLIC CATHETER. SHANNA MIDLINE INTACT. LEFT ANTECUBITAL 20 GAUGE IV INTACT. PATIENT TEMP NOTED AT 86 DEGREES FAHRENHEIT, RAZIA HUGGER ATTACHED. SAFETY MEASURES IMPLEMENTED. WILL CONTINUE PLAN OF CARE AND ANTICIPATE NEEDS.
[2022-10-25] MEDS: SUCRALFATE 1 G TABLET PO SCH ×4 (07:30→21:28)
[2022-10-25] MEDS: MORPHINE SULFATE INJ 2 MG/ML DISP.SYRIN IV PRN (07:34)
[2022-10-25] MEDS: ENSURE ENLIVE 237 ML LIQUID (VANILLA) PO SCH ×3 (07:40→16:00)
[2022-10-25] MEDS: QUETIAPINE FUMARATE 25 MG TABLET PO SCH ×2 (08:00→16:00)
[2022-10-25] MEDS: FAMOTIDINE/PF INJ 20 MG/2 ML VIAL IV SCH ×2 (08:02→21:04)
[2022-10-25] MEDS: THERAHONEY GEL 1.5 OZ TUBE TP SCH (08:02)
[2022-10-25 08:50] LABS: BASOPHILS % (AUTO) 0.1 % (0.0-2.0); HEMATOCRIT 31 % (39-51); HEMOGLOBIN 9.6 g/dL (13.5-17.5); LYMPHOCYTES # (AUTO) 0.5 K/uL (0.8-4.8); LYMPHOCYTES % (AUTO) 2.1 % (20.0-44.0); MEAN CORPUSCULAR HGB CONC 31 g/dl (31.0-36.0); MEAN CORPUSCULAR VOLUME 77 fL (80-96); MONOCYTES # (AUTO) 0.6 K/uL (0.1-1.30); MONOCYTES % (AUTO) 2.4 % (2.0-12.0); NEUTROPHILS # (AUTO) 23.6 K/uL (1.8-8.9); NEUTROPHILS % (AUTO) 93.4 % (43.0-81.0); RED BLOOD CELL COUNT(AUTO) 3.98 MIL/uL (4.5-6.0); WHITE BLOOD COUNT (AUTO) 25.2 K/uL (4.3-11.0)
[2022-10-25 08:56] LABS: PLATELET COUNT (AUTO) 28 K/uL (150-450)
[2022-10-25] MEDS: NOREPINEPHRINE 8 MG in IV NS 0.9% 242 ML IV PRN (09:03)
[2022-10-25] MEDS: PHENYLEPHRINE 100 MG in IV NS 0.9% 240 ML IV PRN (09:29)
[2022-10-25 10:42] LABS: LYMPHOCYTES % (MANUAL) 3 % (16-48); MONOCYTES % (MANUAL) 3 % (0-11.0); NEUTROPHILS % (MANUAL) 94 (42-76)
[2022-10-25 10:46] LABS: ABG BASE EXCESS -14.7 mmol/L; ABG OXYGEN SATURATION 98.6 % (92.0-98.5); ABG PCO2 36.5 mmHg (35.0-45.0); ABG PH 7.167 (7.350-7.450); ABG PO2 162.5 mmHg (75.0-100.0); AaDO2 51.8 mmHg; COHb 0.3 % (0.5-1.5); MetHb 0.3 % (0.0-1.5); SITE, ABG Right Brachial; VENT MODE, BG nasal cannula
[2022-10-25] MEDS: MEROPENEM 500 MG in IV NS 0.9% 50 ML IV SCH ×2 (11:05→22:50)
[2022-10-25 12:55] LABS: ABG BASE EXCESS -12.7 mmol/L; ABG OXYGEN SATURATION 98.5 % (92.0-98.5); ABG PCO2 36.8 mmHg (35.0-45.0); ABG PH 7.208 (7.350-7.450); ABG PO2 148.6 mmHg (75.0-100.0); AaDO2 58.2 mmHg; COHb 0.3 % (0.5-1.5); MetHb 0.3 % (0.0-1.5); O2Hb 97.9 % (94.0-97.0); SITE, ABG Right Brachial; VENT MODE, BG ST 18/5
[2022-10-25] MEDS: IPRATROPIUM NEB FS 0.5 MG/2.5 ML AMPUL.NEB NEB SCH ×2 (14:01→19:37)
[2022-10-25 16:15] LABS: ABG BASE EXCESS -11.7 mmol/L; ABG OXYGEN SATURATION 98.2 % (92.0-98.5); ABG PCO2 20.7 mmHg (35.0-45.0); ABG PH 7.371 (7.350-7.450); ABG PO2 118.7 mmHg (75.0-100.0); AaDO2 56.5 mmHg; COHb 0.2 % (0.5-1.5); MetHb 0.3 % (0.0-1.5); O2Hb 97.7 % (94.0-97.0); SITE, ABG Right Brachial; VENT MODE, BG ST 25/5
[2022-10-25] MEDS: VANCOMYCIN 0.75 GM in IV D5W 250 ML IV SCH (17:03)
--- NOTE | 2022-10-25 17:03 | NUR ---
VANCOMYCIN HELD DUE TO VANCO TROUGH OF 27
[2022-10-25 17:27] LABS: THYROID STIMULATING HORMONE 3.308 uIU/mL (0.358-3.74)
--- NOTE | 2022-10-25 19:07 | NUR ---
PATIENT ENDORSED TO NIGHTSHIFT LETA BRYAN FOR CONTINUATION OF CARE.
--- NOTE | 2022-10-25 20:00 | NUR ---
Received patient resting on BIPAP at prescribed settings well tolerated.SR 80'S. Andrew Synephrine gtt infusing for BP support and will titrate per protocol.Remains NPO status.IVF infusing well.Both IV'S infusing to SHANNA ML and site intact.Colostomy active with small brown liquid output.SPC to gravity draining yellow urine.Turned and repositioned to comfort.Plan of care reinforced.No acute distress noted.
[2022-10-25 22:29] LABS: D-DIMER 17.98 mg/L(FEU (0.17-0.50)
[2022-10-26] VITALS (95 sets, daily range): BP systolic 76–167; BP diastolic 34–102
[2022-10-26] MEDS: IPRATROPIUM NEB FS 0.5 MG/2.5 ML AMPUL.NEB NEB SCH ×4 (01:15→19:46)
[2022-10-26 04:22] LABS: BASOPHILS % (AUTO) 0.2 % (0.0-2.0); EOSINOPHILS % (AUTO) 0.3 % (0.0-6.0); HEMATOCRIT 29 % (39-51); HEMOGLOBIN 9.1 g/dL (13.5-17.5); LYMPHOCYTES # (AUTO) 0.5 K/uL (0.8-4.8); LYMPHOCYTES % (AUTO) 5.3 % (20.0-44.0); MEAN CORPUSCULAR HGB CONC 32 g/dl (31.0-36.0); MEAN CORPUSCULAR VOLUME 78 fL (80-96); MONOCYTES # (AUTO) 0.6 K/uL (0.1-1.30); MONOCYTES % (AUTO) 5.9 % (2.0-12.0); NEUTROPHILS # (AUTO) 8.5 K/uL (1.8-8.9); NEUTROPHILS % (AUTO) 88.3 % (43.0-81.0); WHITE BLOOD COUNT (AUTO) 9.6 K/uL (4.3-11.0)
[2022-10-26 04:30] LABS: PLATELET COUNT (AUTO) 18 K/uL (150-450)
[2022-10-26 04:44] LABS: D-DIMER 11.66 mg/L(FEU (0.17-0.50)
[2022-10-26 04:48] LABS: CALCIUM, SERUM 8.3 mg/dL (8.5-10.1); CREATININE 2.2 mg/dL (0.6-1.3); POTASSIUM 3.7 mmol/L (3.5-5.1)
--- NOTE | 2022-10-26 06:30 | NUR ---
Patient resting in no acute distress.AM care done.Wound care done per protocol.Colostomy care done.Stool for OB sent to lab.Patient AM labs resulted Platelet 18.Called to KATALINA Champagne orders received and carried out.To transfuse 1 unit platelet.Turned and repositioned to comfort off loading pressure points.Will endorse to day shift for OLLIE.
--- NOTE | 2022-10-26 07:05 | NUR ---
RN NOTES Received patient resting on BIPAP , tolerating the settings, o2 sat wnl,on tele SB HR IN 40'S. Andrew Synephrine gtt infusing for BP support and will titrate per protocol.Remains NPO status.IVF infusing well.Both IV'S infusing to SHANNA ML and site intact.Colostomy active with small brown liquid output. suprapubic cath to gravity draining yellow urine. sr up X3, call light within easy reach, bed locked and in lowest position , continue to monitor.
[2022-10-26] MEDS: SUCRALFATE 1 G TABLET PO SCH ×4 (07:30→21:26)
[2022-10-26] MEDS: IV NS 0.9% 1,000 ML IV PRN (07:45)
[2022-10-26] MEDS: ENSURE ENLIVE 237 ML LIQUID (VANILLA) PO SCH ×3 (08:00→16:24)
[2022-10-26 08:01] LABS: OCCULT BLOOD STOOL NEGATIVE (NEGATIVE)
[2022-10-26] MEDS: QUETIAPINE FUMARATE 25 MG TABLET PO SCH ×2 (08:05→16:23)
[2022-10-26] MEDS: THERAHONEY GEL 1.5 OZ TUBE TP SCH (08:06)
[2022-10-26] MEDS: FAMOTIDINE/PF INJ 20 MG/2 ML VIAL IV SCH ×2 (08:07→21:20)
--- NOTE | 2022-10-26 08:22 | NUR ---
placed off bipap onto 2lpm
[2022-10-26] MEDS: PHENYLEPHRINE 100 MG in IV NS 0.9% 240 ML IV PRN ×2 (10:36→21:20)
[2022-10-26] MEDS: MEROPENEM 500 MG in IV NS 0.9% 50 ML IV SCH ×2 (10:38→22:16)
--- NOTE | 2022-10-26 12:00 | NUR ---
RN NOTES PT ON BASIM AT 0.1 MCG/KG/MIN FOR BP SUPPORT, CONTINUE TO MONITOR.
[2022-10-26] MEDS: IV D5/0.45 NACL 1,000 ML IV SCH (12:08)
[2022-10-26] MEDS: CITRIC ACID/SODIUM CITRATE (BICITRA)15 ML UDC PO SCH ×3 (12:17→21:26)
[2022-10-26 12:47] LABS: ABG BASE EXCESS -13.2 mmol/L; ABG PCO2 31.4 mmHg (35.0-45.0); ABG PH 7.236 (7.350-7.450); ABG PO2 99.8 mmHg (75.0-100.0); AaDO2 62.8 mmHg; COHb 0.3 % (0.5-1.5); MetHb 0.4 % (0.0-1.5); O2Hb 95.3 % (94.0-97.0); SITE, ABG Right Radial; VENT MODE, BG N/C
--- NOTE | 2022-10-26 13:00 | NUR ---
RN NOTES NO PLATELETS AVAILABLE PER BLOOD BANK
[2022-10-26 13:31] LABS: BASOPHILS % (MANUAL) 0 % (0.0-2.0); EOSINOPHILS % (MANUAL) 0 % (0-4); LYMPHOCYTES % (MANUAL) 7 % (16-48); MONOCYTES % (MANUAL) 6 % (0-11.0); NEUTROPHILS % (MANUAL) 87 (42-76)
--- NOTE | 2022-10-26 18:26 | NUR ---
RN NOTES PT REMAINS ON 2L O2 N/C , O2 SAT WNL, OFF BIPAP, ON TELE SR HR IN 60'S , COLOSTOMY INTACT, SUPRAPUBIC CATH DRAINING TO GRAVITY, SR UP x3, CALL LIGHT WITHIN EASY REACH, BED LOCKED AND IN LOWEST POSITION, WILL ENDORSE TO HEAT TREAT FURNACE OPERATOR NURSE FOR CONTINUITY OF CARE .
--- NOTE | 2022-10-26 21:30 | NUR ---
ICU/POULTRY FEED SUPERVISOR MORPHINE 2MG IVP PRN WAS GIVEN TO PT BY CLIENT SERVER DEVELOPER NURSE FOR PAIN AND ALSO BATH. PAIN IS RATED 10/10 TO SACRAL AREA. WILL CONTINUE TO MONITOR THIS PT AND HIS PAIN.
[2022-10-26] MEDS: MORPHINE SULFATE INJ 2 MG/ML DISP.SYRIN IV PRN (21:32)
--- NOTE | 2022-10-26 21:43 | NUR ---
Pt placed on nocturnal BiPAP.
--- NOTE | 2022-10-26 22:00 | NUR ---
ICU/MATCHING MACHINE OPERATOR PT WAS GIVEN PM CARE. SUNDAY NIGHT, PICTURES OF WOUNDS WERE TAKEN AND DOCUMENTED. SEE PT'S CHART FOR THIS.
--- NOTE | 2022-10-26 23:00 | NUR ---
ICU/BROOCH AND BRACELET MAKER BASIM WAS TITRATED DUE TO HOSPITAL PROTOCAL. SEE IV SPREAD SHEET FOR TITRATIONS AND TIMES.
[2022-10-27] VITALS (99 sets, daily range): BP systolic 75–159; BP diastolic 41–96
[2022-10-27] MEDS: IPRATROPIUM NEB FS 0.5 MG/2.5 ML AMPUL.NEB NEB SCH ×4 (01:13→19:32)
[2022-10-27] MEDS: IV D5/0.45 NACL 1,000 ML IV SCH ×2 (01:28→15:26)
--- NOTE | 2022-10-27 05:41 | NUR ---
PT OFF BIPAP AND PLACED ON 2L NC.
[2022-10-27 06:31] LABS: CALCIUM, SERUM 8.5 mg/dL (8.5-10.1); CREATININE 2.3 mg/dL (0.6-1.3); POTASSIUM 4.1 mmol/L (3.5-5.1)
--- NOTE | 2022-10-27 07:05 | NUR ---
RN NOTES RECEIVED PT ON BED, ON 2L O2 N/C , O2 SAT WNL, ON TELE SR HR IN 70'S , ON BASIM DRIP AT 0.6 MCH/KG/MIN FOR BP SUPPORT, CONTINUE TO TITRATE PER PROTOCAL , IV SITES CDI, COLOSTOMY INTACT, WITH SMALL AMOUNT OF BROWN LIQUIDLY STOOL, SUPRAPUBIC CATH DRAINING TO GRAVITY, SR UP X3, CALL LIGHT WITHIN EASY REACH, BED LOCKED AND IN LOWEST POSITION, CONTINUE TO MONITOR .
[2022-10-27] MEDS: SUCRALFATE 1 G TABLET PO SCH ×4 (07:30→21:15)
[2022-10-27] MEDS: ENSURE ENLIVE 237 ML LIQUID (VANILLA) PO SCH ×3 (08:00→16:29)
[2022-10-27 08:07] LABS: IMMUNOGLOBULIN A, SERUM 260 mg/dL (61-437); IMMUNOGLOBULIN G, SERUM 977 mg/dL (603-1613); IMMUNOGLOBULIN M, SERUM 75 mg/dL (20-172)
[2022-10-27] MEDS: FAMOTIDINE/PF INJ 20 MG/2 ML VIAL IV SCH (08:16)
[2022-10-27] MEDS: VANCOMYCIN HCL 0.75 GM in IV D5W 250 ML IV SCH (08:19)
[2022-10-27 08:44] LABS: BASOPHILS % (AUTO) 0.4 % (0.0-2.0); EOSINOPHILS % (AUTO) 1.9 % (0.0-6.0); HEMATOCRIT 32 % (39-51); HEMOGLOBIN 10.2 g/dL (13.5-17.5); LYMPHOCYTES # (AUTO) 0.4 K/uL (0.8-4.8); LYMPHOCYTES % (AUTO) 5.8 % (20.0-44.0); MEAN CORPUSCULAR HGB CONC 32 g/dl (31.0-36.0); MEAN CORPUSCULAR VOLUME 77 fL (80-96); MONOCYTES # (AUTO) 0.4 K/uL (0.1-1.30); MONOCYTES % (AUTO) 4.8 % (2.0-12.0); NEUTROPHILS # (AUTO) 6.5 K/uL (1.8-8.9); NEUTROPHILS % (AUTO) 87.1 % (43.0-81.0); WHITE BLOOD COUNT (AUTO) 7.5 K/uL (4.3-11.0)
--- NOTE | 2022-10-27 08:46 | NUR ---
RN NOTES BREATHING IS LABORED AND IRREGULAR , PT IS LETHARGIC , ABG DONE , PT BACK ON BIPAP PER MD ORDER , CONTINUE TO MONITOR
[2022-10-27 08:50] LABS: PLATELET COUNT (AUTO) 17 K/uL (150-450)
[2022-10-27] MEDS: CITRIC ACID/SODIUM CITRATE (BICITRA)15 ML UDC PO SCH ×4 (09:00→21:15)
[2022-10-27] MEDS: QUETIAPINE FUMARATE 25 MG TABLET PO SCH ×2 (09:00→16:29)
[2022-10-27 09:01] LABS: ABG BASE EXCESS -13.8 mmol/L; ABG OXYGEN SATURATION 97.6 % (92.0-98.5); ABG PCO2 38.2 mmHg (35.0-45.0); ABG PH 7.175 (7.350-7.450); ABG PO2 124.4 mmHg (75.0-100.0); AaDO2 30.2 mmHg; COHb 0.1 % (0.5-1.5); MetHb 0.2 % (0.0-1.5); O2Hb 97.3 % (94.0-97.0); SITE, ABG Right Brachial; VENT MODE, BG 2LNC
[2022-10-27] MEDS: THERAHONEY GEL 1.5 OZ TUBE TP SCH (09:01)
[2022-10-27 09:09] LABS: D-DIMER 9.81 mg/L(FEU (0.17-0.50)
[2022-10-27] MEDS: MEROPENEM 500 MG in IV NS 0.9% 50 ML IV SCH ×2 (11:34→23:29)
--- NOTE | 2022-10-27 11:36 | NUR ---
RN NOTES PT ON BIPAP , LETHARGIC , PO MEDS HELD PER MD ORDER .
[2022-10-27 13:07] LABS: *ANA ANTI-CENTROMERE B AB <0.2 AI (0.0-0.9); *ANA ANTI-DNA(DS) AB, QN <1 IU/mL (0-9); *ANA ANTI-JO-1 <0.2 AI (0.0-0.9); *ANA ANTICHROMATIN ANTIBODY <0.2 AI (0.0-0.9); *ANA RNP ANTIBODIES <0.2 AI (0.0-0.9); *ANA SJOGREN'S ANTI-SS-A <0.2 AI (0.0-0.9); *ANA SJOGREN'S ANTI-SS-B <0.2 AI (0.0-0.9); *ANAANTI-SCLERODERMA-70 AB <0.2 AI (0.0-0.9); *ANASMITH AB <0.2 AI (0.0-0.9)
[2022-10-27 15:07] LABS: *SPE A/G RATIO 0.6 (0.7-1.7); *SPE ALPHA-1-GLOBULIN 0.3 g/dL (0.0-0.4); *SPE ALPHA-2-GLOBULIN 0.8 g/dL (0.4-1.0); *SPE BETA GLOBULIN 0.9 g/dL (0.7-1.3); *SPE M-SPIKE Not Observed g/dL (Not Observed)
[2022-10-27 15:32] LABS: LYMPHOCYTES % (MANUAL) 14 % (16-48); METAMYELOCYTES % 1 % (0-0); MONOCYTES % (MANUAL) 6 % (0-11.0); NEUTROPHILS % (MANUAL) 79 (42-76)
--- NOTE | 2022-10-27 18:22 | NUR ---
RN NOTES PT REMAINS ON BIPAP, O2 SAT WNL, ON BASIM DRIP AT 1.3 MCG/KG/MIN, FOR BP SUPPORT, ON TELE SR HR IN 60'S , COLOSTOMY INTACT, SUPRAPUBIC CATH DRAINING TO GRAVITY, SR UP x3, CALL LIGHT WITHIN EASY REACH, BED LOCKED AND IN LOWEST POSITION, WILL ENDORSE TO ASSISTANT TEACHER NURSE FOR CONTINUITY OF CARE .
[2022-10-27] MEDS: FAMOTIDINE (20 MG) 20 MG TABLET PO SCH (21:15)
[2022-10-28] VITALS (90 sets, daily range): BP systolic 69–167; BP diastolic 35–104
[2022-10-28] MEDS: IPRATROPIUM NEB FS 0.5 MG/2.5 ML AMPUL.NEB NEB SCH ×5 (01:10→19:57)
[2022-10-28] MEDS: PHENYLEPHRINE 100 MG in IV NS 0.9% 240 ML IV PRN (03:12)
[2022-10-28] MEDS: IV D5/0.45 NACL 1,000 ML IV SCH ×2 (03:16→16:31)
[2022-10-28 04:51] LABS: BASOPHILS % (AUTO) 0.5 % (0.0-2.0); EOSINOPHILS % (AUTO) 3.9 % (0.0-6.0); HEMATOCRIT 33 % (39-51); HEMOGLOBIN 10.4 g/dL (13.5-17.5); LYMPHOCYTES # (AUTO) 0.8 K/uL (0.8-4.8); LYMPHOCYTES % (AUTO) 9.7 % (20.0-44.0); MEAN CORPUSCULAR HGB CONC 32 g/dl (31.0-36.0); MEAN CORPUSCULAR VOLUME 77 fL (80-96); MONOCYTES # (AUTO) 0.6 K/uL (0.1-1.30); MONOCYTES % (AUTO) 7.3 % (2.0-12.0); NEUTROPHILS # (AUTO) 6.3 K/uL (1.8-8.9); NEUTROPHILS % (AUTO) 78.6 % (43.0-81.0); RED BLOOD CELL COUNT(AUTO) 4.25 MIL/uL (4.5-6.0)
[2022-10-28 05:12] LABS: CALCIUM, SERUM 8.7 mg/dL (8.5-10.1); CREATININE 2.2 mg/dL (0.6-1.3); POTASSIUM 4.5 mmol/L (3.5-5.1)
[2022-10-28 05:28] LABS: D-DIMER 14.32 mg/L(FEU (0.17-0.50)
[2022-10-28 05:38] LABS: PLATELET COUNT (AUTO) 29 K/uL (150-450)
[2022-10-28 06:43] LABS: ABG BASE EXCESS -7.8 mmol/L; ABG OXYGEN SATURATION 98.2 % (92.0-98.5); ABG PCO2 27.2 mmHg (35.0-45.0); ABG PH 7.388 (7.350-7.450); ABG PO2 131.3 mmHg (75.0-100.0); AaDO2 36.2 mmHg; COHb 0.4 % (0.5-1.5); MetHb 0.1 % (0.0-1.5); O2Hb 97.7 % (94.0-97.0); SITE, ABG Left Radial
--- NOTE | 2022-10-28 07:20 | NUR ---
RN OPEN ICU NOTE: AWAKE, ALERT TO NAME, TIME AND PLACE. RESPONSIVE TO VERBAL STIMULI. ON BIPAP ORDERED. PHYSIOTHERAPY AIDE SINUS RHYTHM 64 HR. RIGHT UPPER ARM MIDLINE WITH NEOSYNEPHRINE 0.9 MG/KG/MIN AND IV OF D5 1/2 NS 75 ML /HR. LEFT UPPER ARM MIDLINE SALINE LOCKED. COLOSTOMY ON LEFT ABDMOMEN WITH SOFT STOOL YELLOW IN COLOR. SUPRAPUBIC CATHETER IN PLACE DRAINING YELLOW URINE. HOB ELEVATED, BED IN IS LOCKED, IN LOW POSITION, BED EXIT ALARM ON. CALL LIGHT IN REACH. BILATERAL HALF SIDE RAILS UP X2.
[2022-10-28] MEDS: CITRIC ACID/SODIUM CITRATE (BICITRA)15 ML UDC PO SCH ×4 (08:26→21:02)
[2022-10-28] MEDS: QUETIAPINE FUMARATE 25 MG TABLET PO SCH ×2 (08:26→17:45)
[2022-10-28] MEDS: FAMOTIDINE (20 MG) 20 MG TABLET PO SCH ×2 (08:26→21:02)
[2022-10-28] MEDS: SUCRALFATE 1 G TABLET PO SCH ×4 (08:26→21:02)
[2022-10-28] MEDS: ENSURE ENLIVE 237 ML LIQUID (VANILLA) PO SCH ×3 (08:27→17:46)
[2022-10-28] MEDS: THERAHONEY GEL 1.5 OZ TUBE TP SCH (10:18)
[2022-10-28] MEDS: MEROPENEM 500 MG in IV NS 0.9% 50 ML IV SCH ×2 (10:54→22:51)
[2022-10-28 12:19] LABS: ABG BASE EXCESS -7.8 mmol/L; ABG OXYGEN SATURATION 97.3 % (92.0-98.5); ABG PCO2 38.9 mmHg (35.0-45.0); ABG PH 7.288 (7.350-7.450); ABG PO2 110.7 mmHg (75.0-100.0); COHb 0.4 % (0.5-1.5); MetHb 0.2 % (0.0-1.5); O2Hb 96.7 % (94.0-97.0); SITE, ABG Right Radial; VENT MODE, BG N/C 2LPM
[2022-10-28 16:39] LABS: BAND % (MANUAL) 1 % (0.0-5.0); EOSINOPHILS % (MANUAL) 11 % (0-4); LYMPHOCYTES % (MANUAL) 12 % (16-48); MONOCYTES % (MANUAL) 4 % (0-11.0); NEUTROPHILS % (MANUAL) 72 (42-76)
--- NOTE | 2022-10-28 19:00 | NUR ---
RN CLOSING ICU NOTE: AWAKE, ALERT TO NAME, TIME AND PLACE. RESPONSIVE TO VERBAL STIMULI. ON BIPAP ORDERED. BOTTLE TESTER SINUS RHYTHM 75 HR. RIGHT UPPER ARM MIDLINE WITH NEOSYNEPHRINE 0.9 MG/KG/MIN ON RIGHT UPPPER ARM. IVF OF D5 1/2 NS 75 ML /HR. LEFT UPPER ARM MIDLINE. COLOSTOMY ON LEFT ABDMOMEN WITH SOFT STOOL YELLOW IN COLOR. SUPRAPUBIC CATHETER IN PLACE DRAINING YELLOW URINE. HOB ELEVATED, BED IN IS LOCKED, IN LOW POSITION, BED EXIT ALARM ON. CALL LIGHT IN REACH. BILATERAL HALF SIDE RAILS UP X2.
[2022-10-29] VITALS (59 sets, daily range): BP systolic 84–158; BP diastolic 43–100
[2022-10-29] MEDS: IPRATROPIUM NEB FS 0.5 MG/2.5 ML AMPUL.NEB NEB SCH ×4 (01:43→20:01)
[2022-10-29] MEDS: NOREPINEPHRINE 8 MG in IV NS 0.9% 242 ML IV PRN (03:29)
[2022-10-29] MEDS: IV D5/0.45 NACL 1,000 ML IV SCH ×2 (06:08→21:16)
--- NOTE | 2022-10-29 07:15 | NUR ---
RN OPEN ICU NOTE: AWAKE, ALERT TO NAME, TIME AND PLACE. RESPONSIVE TO VERBAL STIMULI. ON BIPAP ORDERED. BAG FILLER SINUS ZULMA 58 HR. RIGHT UPPER ARM MIDLINE WITH IV OF D5 1/2 NS 75 ML /HR. LEFT UPPER ARM MIDLINE SALINE LOCKED. COLOSTOMY ON LEFT ABDOMEN. SUPRAPUBIC CATHETER IN PLACE DRAINING YELLOW URINE. HOB ELEVATED, BED IN IS LOCKED, IN LOW POSITION, BED EXIT ALARM ON. CALL LIGHT IN REACH. BILATERAL HALF SIDE RAILS UP X2.
[2022-10-29] MEDS: SUCRALFATE 1 G TABLET PO SCH ×4 (08:51→21:02)
[2022-10-29] MEDS: ENSURE ENLIVE 237 ML LIQUID (VANILLA) PO SCH ×3 (08:51→17:02)
[2022-10-29] MEDS: QUETIAPINE FUMARATE 25 MG TABLET PO SCH ×2 (08:51→17:02)
[2022-10-29] MEDS: CITRIC ACID/SODIUM CITRATE (BICITRA)15 ML UDC PO SCH ×4 (08:51→21:02)
[2022-10-29] MEDS: FAMOTIDINE (20 MG) 20 MG TABLET PO SCH ×2 (08:51→21:02)
[2022-10-29] MEDS: THERAHONEY GEL 1.5 OZ TUBE TP SCH (08:52)
[2022-10-29] MEDS: VANCOMYCIN HCL 0.75 GM in IV D5W 250 ML IV SCH (09:00)
--- NOTE | 2022-10-29 09:23 | NUR ---
VANCOMYCIN IV 0900 DOSE NOT ADMINISTERED VANCO TROUGH 22 MORE THAN 20, PHARMACY INFORMED.
[2022-10-29 10:33] LABS: CALCIUM, SERUM 8.5 mg/dL (8.5-10.1); MAGNESIUM 1.9 mg/dL (1.8-2.4); PHOSPHORUS 3.4 mg/dL (2.5-4.9)
[2022-10-29 10:50] LABS: ABG BASE EXCESS -7.3 mmol/L; ABG OXYGEN SATURATION 98.1 % (92.0-98.5); ABG PCO2 35.9 mmHg (35.0-45.0); ABG PH 7.321 (7.350-7.450); ABG PO2 142.6 mmHg (75.0-100.0); AaDO2 43.6 mmHg; MetHb 0.2 % (0.0-1.5); O2Hb 97.9 % (94.0-97.0); SITE, ABG Left Radial; VENT MODE, BG 3 LPM NC
[2022-10-29] MEDS ORDERED: VANCOMYCIN 500 MG in IV D5W 100ml IV SCH (11:00)
[2022-10-29] MEDS: MEROPENEM 500 MG in IV NS 0.9% 50 ML IV SCH (11:06)
[2022-10-29 12:37] LABS: BASOPHILS % (AUTO) 0.3 % (0.0-2.0); EOSINOPHILS % (AUTO) 2.9 % (0.0-6.0); HEMATOCRIT 26 % (39-51); HEMOGLOBIN 8.3 g/dL (13.5-17.5); LYMPHOCYTES # (AUTO) 0.7 K/uL (0.8-4.8); LYMPHOCYTES % (AUTO) 11.2 % (20.0-44.0); MEAN CORPUSCULAR HGB CONC 32 g/dl (31.0-36.0); MEAN CORPUSCULAR VOLUME 76 fL (80-96); MONOCYTES # (AUTO) 0.3 K/uL (0.1-1.30); NEUTROPHILS # (AUTO) 5.4 K/uL (1.8-8.9); NEUTROPHILS % (AUTO) 81.6 % (43.0-81.0); RED BLOOD CELL COUNT(AUTO) 3.44 MIL/uL (4.5-6.0); WHITE BLOOD COUNT (AUTO) 6.6 K/uL (4.3-11.0)
[2022-10-29 13:03] LABS: D-DIMER 6.86 mg/L(FEU (0.17-0.50)
[2022-10-29 13:17] LABS: PLATELET COUNT (AUTO) 14 K/uL (150-450)
--- NOTE | 2022-10-29 14:09 | NUR ---
ROWENA VILLAGOMEZ FLIGHT SERVICE SPECIALIST INFORMED OF PLATELETS 14.
--- NOTE | 2022-10-29 14:39 | NUR ---
CALLED RADIOLOGY DEPARTMENT FOR CT SCAN FOLLOW UP, PER RADIOLOGY DEPARTMENT HAS BEEN BUSY AND WILL COME AND DO IT LATER ON TODAY.
--- NOTE | 2022-10-29 14:40 | NUR ---
PATIENT VISITED BY FRIENDS.
--- NOTE | 2022-10-29 18:37 | NUR ---
Edward pryor put on for T.97.5. Addendum: 10/29/22 at 1929 by RICK ROBERTSON RN [id number] Clarification: Edward pryor put on for T. 95.7 temporal. Alert and awake. On 1 liter per minute nasal cannula. haulage boss sinus krysta, 57. Left and right upper arm midline patent. IVF of D5 1/2 NS at 75 ML/HR. Supra pubic catheter with yellow urine. Colostomy bag in place. Wound care done as ordered. Able to tolerate po diet well. 100%. HOB elevated, bed is locked, in low position, bed exit alarm on. Kept clean and comfortable.
[2022-10-29] MEDS ORDERED: GENTAMICIN IV SCH (22:00)
[2022-10-29] MEDS ORDERED: D5W IV SCH (22:00)
--- NOTE | 2022-10-29 22:15 | NUR ---
Plts unavailable / lab.
[2022-10-29] MEDS ORDERED: GENTAMICIN 80 MG/2 ML VIAL ONE (22:26)
--- NOTE | 2022-10-29 22:36 | NUR ---
Note to pharmacy: Gentamicin previously charted.
--- NOTE | 2022-10-29 23:57 | NUR ---
RT NOTE PT PLACED ON NOC BIPAP AT THIS TIME. CURRENT SETTINGS : S/T 25/5, 18, 28%. MEPILEX APPLIED TO MASK. MASK SECURED. ALARMS ON AND AUDIBLE. PT STATES HE'S COMFORTABLE. WILL CONTINUE TO MONITOR CLOSELY. LETA MARIA NOTIFIED.
[2022-10-30] VITALS (66 sets, daily range): BP systolic 63–187; BP diastolic 31–113
[2022-10-30] MEDS: IPRATROPIUM NEB FS 0.5 MG/2.5 ML AMPUL.NEB NEB SCH ×4 (01:52→20:09)
--- NOTE | 2022-10-30 03:44 | NUR ---
RT NOTE PT REQUESTED FOR BIPAP OFF. PT PLACED ON 1 LPM NASAL CANNULA. NO RESPIRATORY DISTRESS NOTED. RN NOTIFIED.
[2022-10-30 04:42] LABS: BASOPHILS % (AUTO) 0.8 % (0.0-2.0); EOSINOPHILS % (AUTO) 3.4 % (0.0-6.0); HEMATOCRIT 24 % (39-51); HEMOGLOBIN 7.8 g/dL (13.5-17.5); LYMPHOCYTES # (AUTO) 0.5 K/uL (0.8-4.8); LYMPHOCYTES % (AUTO) 12.7 % (20.0-44.0); MEAN CORPUSCULAR HGB CONC 32 g/dl (31.0-36.0); MEAN CORPUSCULAR VOLUME 75 fL (80-96); MONOCYTES # (AUTO) 0.3 K/uL (0.1-1.30); MONOCYTES % (AUTO) 7.4 % (2.0-12.0); NEUTROPHILS # (AUTO) 3.2 K/uL (1.8-8.9); NEUTROPHILS % (AUTO) 75.7 % (43.0-81.0); WHITE BLOOD COUNT (AUTO) 4.3 K/uL (4.3-11.0)
[2022-10-30 04:51] LABS: CALCIUM, SERUM 8.4 mg/dL (8.5-10.1); POTASSIUM 4.4 mmol/L (3.5-5.1)
[2022-10-30 04:56] LABS: PLATELET COUNT (AUTO) 22 K/uL (150-450)
[2022-10-30 05:08] LABS: D-DIMER 7.9 mg/L(FEU (0.17-0.50)
--- NOTE | 2022-10-30 07:05 | NUR ---
RN NOTES RECEIVED PT ON BED, ON 3L O2 N/C , DRAWZY , DOES NOT FOLLOW COMMAND, ON 3L O2 N/C , O2 SAT WNL, ON TELE ST HR IN 100'S. COLOSTOMY BAG INTACT, SUPRAPUBIC CATH INTACT AND DRAINING TO GRAVITY WITH YELLOW URINE, IV SITES CDI, IVF AT 75CC/HR RUNNING , SR UP x3, CALL LIGHT WITHIN EASY REACH, BED LOCKED AND IN LOWEST POSITION, CONTINUE TO MONITOR .
[2022-10-30 07:48] LABS: BAND % (MANUAL) 6 % (0.0-5.0); LYMPHOCYTES % (MANUAL) 14 % (16-48); MONOCYTES % (MANUAL) 2 % (0-11.0); NEUTROPHILS % (MANUAL) 78 (42-76)
[2022-10-30] MEDS: CITRIC ACID/SODIUM CITRATE (BICITRA)15 ML UDC PO SCH ×4 (08:13→21:00)
[2022-10-30] MEDS: SUCRALFATE 1 G TABLET PO SCH ×4 (08:13→21:54)
[2022-10-30] MEDS: QUETIAPINE FUMARATE 25 MG TABLET PO SCH ×2 (08:13→17:00)
[2022-10-30] MEDS: THERAHONEY GEL 1.5 OZ TUBE TP SCH (08:14)
[2022-10-30] MEDS: FAMOTIDINE (20 MG) 20 MG TABLET PO SCH ×2 (08:14→21:00)
[2022-10-30] MEDS: ENSURE ENLIVE 237 ML LIQUID (VANILLA) PO SCH ×3 (08:15→17:00)
[2022-10-30] MEDS: NOREPINEPHRINE 8 MG in IV NS 0.9% 242 ML IV PRN (09:48)
[2022-10-30 10:00] LABS: ABG BASE EXCESS -6.5 mmol/L; ABG OXYGEN SATURATION 97.4 % (92.0-98.5); ABG PCO2 35.5 mmHg (35.0-45.0); ABG PH 7.339 (7.350-7.450); AaDO2 72.6 mmHg; COHb 0.2 % (0.5-1.5); MetHb 0.4 % (0.0-1.5); O2Hb 96.8 % (94.0-97.0); SITE, ABG Right Radial
[2022-10-30] MEDS: IV D5/0.45 NACL 1,000 ML IV SCH ×2 (11:00→21:50)
--- NOTE | 2022-10-30 11:15 | NUR ---
RN NOTES PLT TRANSFUSION CANCELLED BY ABIODUN MARIE EMPLOYEE BENEFITS MANAGER, PER DR FELICIANO ORDER .
--- NOTE | 2022-10-30 11:30 | NUR ---
RN NOTES PT IS LETHARGIC AND STATED HAS HARD TIME BREATHING , PT BACK ON BIPAP PER MD ORDER . CONTINUE TO MONITOR .
--- NOTE | 2022-10-30 14:00 | NUR ---
RN NOTES O2 SAT WNL, ON BIPAP, MORE ALERT , ON LEVO FOR BP SUPPORT, CONTINUE TO MONITOR
--- NOTE | 2022-10-30 18:41 | NUR ---
RN NOTES PT REMAINS ON BIPAP, MORE ALERT, FOLLOWS SIMPLE COMMAND , OFF LEVO AT THIS TIME, ON TELE SR , HR IN 80'S , IV SITES CDI, WILL ENDORSE TO NEURO UROLOGIST NURSE FOR CONTINUITY OF CARE .
--- NOTE | 2022-10-30 20:09 | NUR ---
RT NOTE PT RECEIVED ON BIPAP. MASK SECURED WITH MEPILEX IN PLACE. ALARMS ON AND AUDIBLE. NO RESPIRATORY DISTRESS NOTED. PT TOLERATING WELL. WILL MONITOR.
--- NOTE | 2022-10-30 20:48 | NUR ---
POWDER TRUCK DRIVER OPENING NOTE PT RECEIVED IN BED, AWAKE, ALERT, ABLE TO FOLLOW SIMPLE COMMANDS. PT ON BIPAP WITH SETTING OF 25/5, RATE 18, FIO2 28% WITH CURRENT O2SAT OF 100%; NO S/S OF RESP DISTRESS, NO SOB OR COUGH, NON-LABORED AND EQUAL BREATHING. PT ATTACHED TO BEDSIDE MONITOR, SR WITH HR OF 81. SUPRAPUBIC CATHETER IN PLACE, DRAINING CLEAR AND YELLOW URINE; COLOSTOMY INTACT AND PATENT, NO SIGNS OF LEAKING, WITH BROWN AND LOOSE STOOL. SHANNA AND PAPA MIDLINE INTACT AND PATENT WITH D5 1/2 NS INFUSING; LEVO ALSO RESTARTED D/T LOW BP OF 81/48. BED IN LOWEST POSITION, CALL LIGHT WITHIN REACH, SIDE RAILS UP X3. WILL CONTINUE TO MONITOR THROUGHOUT THE NIGHT.
--- NOTE | 2022-10-30 21:55 | NUR ---
RN NOTE 2100 MEDS NOT ADMINISTERED PT IS ON BIPAP.
[2022-10-31] VITALS (90 sets, daily range): BP systolic 70–189; BP diastolic 31–152
[2022-10-31] MEDS: IPRATROPIUM NEB FS 0.5 MG/2.5 ML AMPUL.NEB NEB SCH ×4 (01:32→20:06)
--- NOTE | 2022-10-31 01:32 | NUR ---
RT NOTE CHANGED BIPAP MASK TO NOSE FACE MASK TYPE B FOR BETTER COMFORT AND TO RELIEVE PRESSURE ON NOSE. PT TOLERATING WELL.
[2022-10-31 04:59] LABS: BASOPHILS % (AUTO) 0.5 % (0.0-2.0); EOSINOPHILS % (AUTO) 1.4 % (0.0-6.0); HEMATOCRIT 25 % (39-51); HEMOGLOBIN 8.1 g/dL (13.5-17.5); LYMPHOCYTES # (AUTO) 1.3 K/uL (0.8-4.8); LYMPHOCYTES % (AUTO) 14.7 % (20.0-44.0); MEAN CORPUSCULAR HGB CONC 32 g/dl (31.0-36.0); MEAN CORPUSCULAR VOLUME 74 fL (80-96); MONOCYTES # (AUTO) 0.7 K/uL (0.1-1.30); MONOCYTES % (AUTO) 8.1 % (2.0-12.0); NEUTROPHILS # (AUTO) 6.9 K/uL (1.8-8.9); NEUTROPHILS % (AUTO) 75.3 % (43.0-81.0); WHITE BLOOD COUNT (AUTO) 9.1 K/uL (4.3-11.0)
[2022-10-31 05:07] LABS: CALCIUM, SERUM 8.9 mg/dL (8.5-10.1); CREATININE 2.1 mg/dL (0.6-1.3); POTASSIUM 4.6 mmol/L (3.5-5.1)
[2022-10-31 05:09] LABS: PLATELET COUNT (AUTO) 46 K/uL (150-450)
--- NOTE | 2022-10-31 05:11 | NUR ---
RN NOTE RECEIVED CRITICAL FROM LAB; PLTS 46, TRENDING UP FROM 22
[2022-10-31 05:19] LABS: BILIRUBIN,DIRECT 0.2 mg/dL (0.0-0.2); BILIRUBIN,TOTAL 0.5 mg/dL (0.2-1.0)
[2022-10-31 05:20] LABS: D-DIMER 6.85 mg/L(FEU (0.17-0.50)
--- NOTE | 2022-10-31 06:12 | NUR ---
RN NOTE PT TAKEN OFF OF BIPAP AND PLACED ON 3L NC WITH CURRENT O2SAT OF 100%; NO S/S OF RESP DISTRESS, NON-LABORED AND EQUAL BREATHING.
--- NOTE | 2022-10-31 06:46 | NUR ---
ROLL HAULER CLOSING NOTE PT REMAINS IN BED, AWAKE, WATCHING TV, CALM, COOPERATIVE. NO FEVER THROUGHOUT THE NIGHT. PT TAKEN OFF OF BIPAP AND PLACED ON 3L NC WITH O2SAT RANGING FROM 96%-100%; NO S/S OF RESP DISTRESS, NO SOB OR COUGH, NON-LABORED AND EQUAL BREATHING. ATTACHED TO BEDSIDE MONITOR. SB-SR WITH HR RANGING FROM 57-94. COLOSTOMY INTACT AND PATENT WITH SOFT AND YELLOWISH-BROWN STOOL. SUPRAPUBIC INTACT AND PATENT, DRAINING CLEAR AND YELLOW URINE. SHANNA MIDLINE WITH LEVO AT 0.03 MCG/KG/MIN AND D5 1/2 NS AT 75 ML/HR. WOUNDS CLEANSED AND NEW DRESSINGS APPLIED. ALL DUE MEDS ADMINISTERED DURING THE NIGHT. BED IN LOWEST POSITION, CALL LIGHT WITHIN REACH, SIDE RAILS UP X3. WILL ENDORSE TO DAYSHIFT NURSE TO CONTINUE CARE.
--- NOTE | 2022-10-31 07:05 | NUR ---
RN NOTES RECEIVED PT ON BED, ON 3L O2 N/C , ALERT/ FOLLOWS COMMAND, ON 3L O2 N/C , O2 SAT WNL, ON TELE SR, HR IN 70'S. COLOSTOMY BAG INTACT, SUPRAPUBIC CATH INTACT AND DRAINING TO GRAVITY WITH YELLOW URINE, IV SITES CDI, ON LEVO FOR BP SUPPORT, IVF AT 75CC/HR RUNNING , SR UP x3, CALL LIGHT WITHIN EASY REACH, BED LOCKED AND IN LOWEST POSITION, CONTINUE TO MONITOR .
--- NOTE | 2022-10-31 07:46 | NUR ---
WOUND CARE CONSULT: PT SEEN FOR DRY SCAB/LESION TO NOSE. NO TENDERNESS, ERYTHEMA OR DRAINAGE NOTED. OPEN TO AIR. DISCUSSED WITH SURGICAL TEAM CURRENTLY ON CASE. MD IN AGREEMENT WITH PLAN OF CARE.
[2022-10-31] MEDS: SUCRALFATE 1 G TABLET PO SCH ×4 (08:45→21:03)
[2022-10-31] MEDS: CITRIC ACID/SODIUM CITRATE (BICITRA)15 ML UDC PO SCH ×4 (08:45→21:03)
[2022-10-31] MEDS: QUETIAPINE FUMARATE 25 MG TABLET PO SCH ×2 (08:45→16:32)
[2022-10-31] MEDS: ENSURE ENLIVE 237 ML LIQUID (VANILLA) PO SCH ×3 (08:45→16:33)
[2022-10-31] MEDS: FAMOTIDINE (20 MG) 20 MG TABLET PO SCH ×2 (08:45→21:03)
[2022-10-31] MEDS: THERAHONEY GEL 1.5 OZ TUBE TP SCH (08:46)
[2022-10-31 10:29] LABS: BAND % (MANUAL) 8 % (0.0-5.0); BASOPHILS % (MANUAL) 0 % (0.0-2.0); EOSINOPHILS % (MANUAL) 2 % (0-4); LYMPHOCYTES % (MANUAL) 15 % (16-48); MONOCYTES % (MANUAL) 4 % (0-11.0); NEUTROPHILS % (MANUAL) 71 (42-76)
[2022-10-31] MEDS: IV D5/0.45 NACL 1,000 ML IV SCH (11:14)
[2022-10-31 12:40] LABS: ABG BASE EXCESS -4.1 mmol/L; ABG OXYGEN SATURATION 97.9 % (92.0-98.5); ABG PCO2 34.1 mmHg (35.0-45.0); ABG PH 7.391 (7.350-7.450); ABG PO2 125.3 mmHg (75.0-100.0); AaDO2 34.1 mmHg; COHb 0.3 % (0.5-1.5); MetHb 0.4 % (0.0-1.5); O2Hb 97.2 % (94.0-97.0); SITE, ABG Left Radial; VENT MODE, BG 2 LPM NC
[2022-10-31] MEDS: NOREPINEPHRINE 8 MG in IV NS 0.9% 242 ML IV PRN (12:50)
--- NOTE | 2022-10-31 14:00 | NUR ---
RN NOTES BP IS VERY LABILE , CONTINUE TO MONITOR
--- NOTE | 2022-10-31 18:27 | NUR ---
RN NOTES PT ON 1L O2 NC. FOLLOWS SIMPLE COMMAND , BP IS LABILE, LEVO AT 0.02 MCG/KG/MIN , ON TELE SR , HR IN 70'S , IV SITES CDI, WILL ENDORSE TO SAGGER SOAK NURSE FOR CONTINUITY OF CARE .
--- NOTE | 2022-10-31 20:25 | NUR ---
SPECIMEN COLLECTOR OPENING NOTE PT RECEIVED IN BED, AWAKE, A/O X3; NOT ALERT TO SITUATION; CALM, COOPERATIVE. PT ON 1L NC WITH CURRENT O2SAT OF 100%, TOLERATING NC WELL WITH NO SIGNS OF RESP DISTRESS, NO SOB OR COUGH, NON-LABORED AND EQUAL BREATHING. PT ATTACHED TO BEDSIDE MONITOR, SR WITH HR OF 89. COLOSTOMY INTACT, NO SIGNS OF LEAKING; OSTOMY PINK AND MOIST, WITH SOFT YELLOWISH-BROWN STOOL. SUPRAPUBIC CATHETER INTACT AND PATENT, DRAINING CLEAR AND YELLOW URINE. SHANNA AND PAPA MIDLINE INTACT AND PATENT, LEVO AT 0.02 MCG/KG/MIN AND D5 1/2 NS AT 75 ML/HR. BED IN LOWEST POSITION, CALL LIGHT WITHIN REACH, SIDE RAILS UP X3. WILL CONTINUE TO MONITOR THROUGHOUT THE NIGHT.
[2022-10-31] MEDS: GENTAMICIN 100 MG in IV D5W 100 ML IV SCH (21:03)
--- NOTE | 2022-10-31 21:38 | NUR ---
RN NOTE LEVO PUT ON HOLD FOR NOW WITH CURRENT BP OF 133/69, HR 81. WILL CONTINUE TO MONITOR BP AND ASSESS NEED TO RE-START LEVO.
[2022-10-31] MEDS ORDERED: GENTAMICIN IV SCH (22:00)
[2022-10-31] MEDS ORDERED: D5W IV SCH (22:00)
[2022-11-01] VITALS (99 sets, daily range): BP systolic 61–187; BP diastolic 27–119
[2022-11-01] MEDS: IV D5/0.45 NACL 1,000 ML IV SCH ×2 (01:08→14:15)
--- NOTE | 2022-11-01 01:10 | NUR ---
RT NOTE PT REFUSING TO BE ON BIPAP. NO RESPIRATORY DISTRESS NOTED. RN NOTIFIED. WILL MONITOR.
[2022-11-01] MEDS: IPRATROPIUM NEB FS 0.5 MG/2.5 ML AMPUL.NEB NEB SCH ×4 (01:50→19:26)
--- NOTE | 2022-11-01 02:30 | NUR ---
RN NOTE PT'S SBP NOTED TO BE IN THE 60S. LEVO RE-STARTED AT THIS TIME AT 0.1 MCG/KG/MIN. WILL CONTINUE TO MONITOR BP.
[2022-11-01 04:07] LABS: BASOPHILS % (AUTO) 0.4 % (0.0-2.0); EOSINOPHILS % (AUTO) 1.6 % (0.0-6.0); HEMATOCRIT 24 % (39-51); HEMOGLOBIN 7.8 g/dL (13.5-17.5); LYMPHOCYTES # (AUTO) 1.2 K/uL (0.8-4.8); LYMPHOCYTES % (AUTO) 15.2 % (20.0-44.0); MEAN CORPUSCULAR HGB CONC 32 g/dl (31.0-36.0); MEAN CORPUSCULAR VOLUME 76 fL (80-96); MONOCYTES # (AUTO) 0.6 K/uL (0.1-1.30); MONOCYTES % (AUTO) 6.9 % (2.0-12.0); NEUTROPHILS # (AUTO) 6.1 K/uL (1.8-8.9); NEUTROPHILS % (AUTO) 75.9 % (43.0-81.0); PLATELET COUNT (AUTO) 66 K/uL (150-450)
[2022-11-01 04:20] LABS: CREATININE 1.9 mg/dL (0.6-1.3)
--- NOTE | 2022-11-01 06:40 | NUR ---
COUNTY SUPERINTENDENT OF SCHOOLS CLOSING NOTE PT REMAINS IN BED, AWAKE, A/O X3, CALM, COOPERATIVE. CONTINUES TO BE ON 1L NC WITH O2SAT RANGING FROM 96%-100%; TOLERATED WELL OVER NIGHT WITH NO S/S OF RESP DISTRESS, NON-LABORED AND EQUAL BREATHING; REMAINED ALERT ALL THROUGHOUT THE NIGHT WITH NO SIGNS OF LETHARGY. ATTACHED TO BEDSIDE MONITOR, SR WITH HR RANGING FROM 70-92. SUPRAPUBIC CATHETER INTACT AND PATENT, DRAINING CLEAR AND YELLOW URINE. OSTOMY IS PINK AND MOIST, DRAINING LIQUID YELLOWISH-BROWN STOOL; COLOSTOMY BAG CHANGED. SHANNA MIDLINE INTACT AND PATENT WITH LEVO AT 0.06 MCG/KG/MIN AND D5 1/2 NS AT 75 ML/HR. WOUNDS CLEANSED AND NEW DRESSINGS APPLIED. ALL DUE MEDS ADMINISTERED DURING THE NIGHT. BED IN LOWEST POSITION, CALL LIGHT WITHIN REACH, SIDE RAILS UP X3. WILL ENDORSE TO DAYSHIFT NURSE TO CONTINUE CARE. Addendum: 11/01/22 at 0700 by PRINCESS ALBRIGHT RN LEVO AT 0.07 MCG/KG/MIN
[2022-11-01] MEDS: QUETIAPINE FUMARATE 25 MG TABLET PO SCH ×2 (08:03→16:39)
[2022-11-01] MEDS: CITRIC ACID/SODIUM CITRATE (BICITRA)15 ML UDC PO SCH ×4 (08:03→21:26)
[2022-11-01] MEDS: SUCRALFATE 1 G TABLET PO SCH ×4 (08:04→21:26)
[2022-11-01] MEDS: FAMOTIDINE (20 MG) 20 MG TABLET PO SCH ×2 (08:04→21:26)
[2022-11-01] MEDS: ENSURE ENLIVE 237 ML LIQUID (VANILLA) PO SCH ×3 (08:04→16:39)
[2022-11-01] MEDS: THERAHONEY GEL 1.5 OZ TUBE TP SCH (08:05)
[2022-11-01 09:16] LABS: ABG BASE EXCESS -4.5 mmol/L; ABG OXYGEN SATURATION 95.2 % (92.0-98.5); ABG PCO2 36.1 mmHg (35.0-45.0); ABG PH 7.368 (7.350-7.450); ABG PO2 84.2 mmHg (75.0-100.0); COHb 0.5 % (0.5-1.5); MetHb 0.3 % (0.0-1.5); O2Hb 94.4 % (94.0-97.0); SITE, ABG Right Brachial; VENT MODE, BG NASAL CANNULA
--- NOTE | 2022-11-01 12:45 | NUR ---
RN NOTES PT STATES DIFFICULTY IN SWALLOWING CURREN MECH SOFT DIET; CHANGED CONSISTENCY BACK TO PREVIOUS PUREED DIET.
[2022-11-01 16:24] LABS: EOSINOPHILS % (MANUAL) 2 % (0-4); LYMPHOCYTES % (MANUAL) 15 % (16-48); MONOCYTES % (MANUAL) 8 % (0-11.0); NEUTROPHILS % (MANUAL) 75 (42-76)
[2022-11-01] MEDS: NOREPINEPHRINE 8 MG in IV NS 0.9% 242 ML IV PRN (18:51)
--- NOTE | 2022-11-01 19:22 | NUR ---
RN CLOSING NOTES PT IS COMFORTABLE, ALL DUE MEDICATIONS GIVEN. PT STILL ON LEVOPHED AT 0.07 MCG/KG/HR; UNABLE TO TITRATE DOWN DUE TO HYPOTENSION AT THIS TIME. WOUND CARE COMPLETED ON MY SHIFT ALONG W/CHANGE OF LINENS. REPORT GIVEN TO ONCOMING NURSE DILL RN FOR CONTINUATION OF CARE.
--- NOTE | 2022-11-01 19:59 | NUR ---
RN NOTE SPOKE WITH PHARMACY REGARDING THE GENTAMICIN SCHEDULED FOR TONIGHT; RANDOM GENTAMICIN LEVEL IS 9.8. PER PHARMACIST OK TO GIVE THIS WAS THE LEVEL TAKEN BEFORE THE 1ST DOSE. WILL AWAIT GENTAMICIN PEAK AND TROUGH SCHEDULED FOR 11/02.
--- NOTE | 2022-11-01 20:15 | NUR ---
STACKER OPENING NOTE PT RECEIVED IN BED, WATCHING TV, A/O X3. PT ON 1L NC WITH CURRENT O2SAT OF 99%; NO S/S OF RESP DISTRESS, NO SOB OR COUGH, NON-LABORED AND EQUAL BREATHING. PT ATTACHED TO BEDSIDE MONITOR, SR WITH HR OF 88. OSTOMY IS PINK AND MOIST, DRAINING YELLOWISH-BROWN STOOL. SUPRAPUBIC CATHETER INTACT AND PATENT, DRAINING CLEAR AND YELLOW URINE. PAPA AND SHANNA MIDLINE INTACT AND PATENT, D5 1/2 NS INFUSING AT 75 ML/HR AND LEVO AT 0.07 MCG/KG/MIN. BED IN LOWEST POSITION, CALL LIGHT WITHIN REACH, SIDE RAILS UP X3. WILL CONTINUE TO MONITOR THROUGHOUT THE NIGHT.
[2022-11-01] MEDS: GENTAMICIN 100 MG in IV D5W 100 ML IV SCH (21:26)
--- NOTE | 2022-11-01 23:27 | NUR ---
RN NOTE PT PLACED ON NOCTURNAL BIPAP AT THIS TIME WITH SETTING OF 25/5, RATE 18, 28% FIO2 WITH CURRENT O2SAT OF 98% WITH NO S/S OF RESP DISTRESS.
[2022-11-02] VITALS (91 sets, daily range): BP systolic 71–214; BP diastolic 41–170
[2022-11-02] MEDS: IPRATROPIUM NEB FS 0.5 MG/2.5 ML AMPUL.NEB NEB SCH ×4 (01:18→19:32)
[2022-11-02] MEDS: IV D5/0.45 NACL 1,000 ML IV SCH (03:59)
--- NOTE | 2022-11-02 04:38 | NUR ---
RN NOTE PT REFUSED BIPAP AND REFUSES TO HAVE LABS DRAWN UNTIL BIPAP IS TAKEN OFF. BIPAP TAKEN OFF AT THIS TIME AND PLACED BACK ON 1L NC WITH O2SAT OF 98%; NO S/S OF RESP DISTRESS. RT JOHN NOTIFIED.
[2022-11-02 05:18] LABS: BASOPHILS % (AUTO) 0.6 % (0.0-2.0); EOSINOPHILS % (AUTO) 1.2 % (0.0-6.0); HEMATOCRIT 21 % (39-51); LYMPHOCYTES # (AUTO) 0.6 K/uL (0.8-4.8); LYMPHOCYTES % (AUTO) 8.5 % (20.0-44.0); MEAN CORPUSCULAR HGB CONC 32 g/dl (31.0-36.0); MEAN CORPUSCULAR VOLUME 75 fL (80-96); MONOCYTES # (AUTO) 0.2 K/uL (0.1-1.30); MONOCYTES % (AUTO) 3.3 % (2.0-12.0); NEUTROPHILS # (AUTO) 6.5 K/uL (1.8-8.9); NEUTROPHILS % (AUTO) 86.4 % (43.0-81.0); PLATELET COUNT (AUTO) 90 K/uL (150-450); RED BLOOD CELL COUNT(AUTO) 2.79 MIL/uL (4.5-6.0); WHITE BLOOD COUNT (AUTO) 7.5 K/uL (4.3-11.0)
--- NOTE | 2022-11-02 05:30 | NUR ---
RN NOTE RECEIVED CRITICAL FROM LAB. HGB/HCT .02/09, NOTED TO BE TRENDING DOWN FROM . HERNANDO GUAMAN NOTIFIED. AWAITING RESPONSE. Addendum: 11/02/22 at 0622 by PRINCESS NATALEE GILLETTE ORDER RECEIVED FOR 1 UNIT PRBC AND FOR A STOOL SPECIMEN TO TEST FOR OB. ORDERS CARRIED OUT.
[2022-11-02 05:31] LABS: HEMOGLOBIN 6.7 g/dL (13.5-17.5)
[2022-11-02 05:38] LABS: CALCIUM, SERUM 8.4 mg/dL (8.5-10.1); CREATININE 1.7 mg/dL (0.6-1.3); POTASSIUM 5.3 mmol/L (3.5-5.1)
--- NOTE | 2022-11-02 06:45 | NUR ---
USED BUILDING MATERIALS YARD WORKER CLOSING NOTE PT REMAINS IN BED, AWAKE, A/O X3, NOTED TO HAVE CONFUSION/HALLUCINATION AT NIGHT. FOR EXAMPLE, PT WAS SAYING TO HELP HER MOTHER SHE IS STUCK IN THE DOORWAY. PT TAKEN OFF OF NOCTURNAL BIPAP AT 0438, AND PLACED BACK TO 1L NC WITH O2SAT RANGING FROM 96%-100%; NO S/S OF RESP DISTRESS, NO SOB, NON-LABORED AND EQUAL BREATHING. ATTACHED TO BEDSIDE MONITOR, SR WITH HR RANGING FROM 74-97. LLQ COLOSTOMY INTACT, NEW BAG APPLIED; OSTOMY IS PINK AND MOIST WITH LIQUID YELLOW-BROWN STOOL. SUPRAPUBIC CATHETER INTACT AND PATENT, DRAINING CLEAR AND YELLOW URINE. WOUNDS CLEANSED, NEW DRESSINGS APPLIED. SHANNA MIDLINE INTACT AND PATENT, WITH LEVO AT 0.01 MCG/KG/MIN AND D5 1/2 NS AT 75 ML/HR. ALL DUE MEDS ADMINISTERED DURING THE NIGHT. BED IN LOWEST POSITION, CALL LIGHT WITHIN REACH, SIDE RAILS UP X3. WILL ENDORSE TO DAYSHIFT NURSE TO CONTINUE CARE.
[2022-11-02] MEDS: QUETIAPINE FUMARATE 25 MG TABLET PO SCH ×2 (08:28→16:31)
[2022-11-02] MEDS: FAMOTIDINE (20 MG) 20 MG TABLET PO SCH ×2 (08:28→21:00)
[2022-11-02] MEDS: SUCRALFATE 1 G TABLET PO SCH ×4 (08:28→21:34)
[2022-11-02] MEDS: CITRIC ACID/SODIUM CITRATE (BICITRA)15 ML UDC PO SCH ×4 (08:28→20:50)
[2022-11-02] MEDS: ENSURE ENLIVE 237 ML LIQUID (VANILLA) PO SCH ×3 (08:29→16:31)
[2022-11-02] MEDS: THERAHONEY GEL 1.5 OZ TUBE TP SCH (08:29)
[2022-11-02 10:57] LABS: EOSINOPHILS % (MANUAL) 1 % (0-4); LYMPHOCYTES % (MANUAL) 8 % (16-48); MONOCYTES % (MANUAL) 3 % (0-11.0); NEUTROPHILS % (MANUAL) 88 (42-76)
[2022-11-02] MEDS: methylPREDNISolone SOD SUCC 125 MG/2ML VIAL IV SCH ×3 (11:12→21:36)
--- NOTE | 2022-11-02 16:12 | NUR ---
PT PLACED BACK ON RESCUE BIPAP DUE TO INCREASED WORK OF BREATHING. NURSE AT BEDSIDE. LA WELL AT THIS TIME Addendum: 11/02/22 at 1614 by YING KIRAN RT Amended: Links added.
--- NOTE | 2022-11-02 16:32 | NUR ---
RN NOTES HELD PT'S PO MEDS AT THIS TIME. PT PLACED BACK ON BIPAP AND LETHARGIC.
[2022-11-02] MEDS: IV D5/0.45 NACL 1,000 ML IV PRN (17:36)
[2022-11-02] MEDS: NOREPINEPHRINE 8 MG in IV NS 0.9% 242 ML IV PRN (17:38)
--- NOTE | 2022-11-02 19:10 | NUR ---
RN NOTES PT SEEMS COMFORTABLE, NO COMPLAINT OF PAIN AT THIS TIME. PT BECAME DIAPHORETIC AND HAVING SOB AFTER CT SCAN OF ABD AND PELVIS WAS COMPLETED. RT PLACED PT BACK ON BIPAP AND IS COMFORTABLE AT THIS TIME. 1U PRBC WAS GIVEN TO PT DUE TO HGB AT 6.7 TODAY W/NO S/S OF BLEEDING AT THIS TIME. STOOL OB COLLECTED AND LAB NOTIFIED TO PICK IT UP. REPORT GIVEN TO TRUE GILLETTE FOR CONTINUATION OF CARE.
[2022-11-02] MEDS: GENTAMICIN 100 MG in IV D5W 100 ML IV SCH (21:36)
[2022-11-03] VITALS (69 sets, daily range): BP systolic 87–175; BP diastolic 44–107
[2022-11-03] MEDS: IPRATROPIUM NEB FS 0.5 MG/2.5 ML AMPUL.NEB NEB SCH ×4 (01:31→19:34)
[2022-11-03 02:20] LABS: CREATININE 1.6 mg/dL (0.6-1.3); POTASSIUM 5.3 mmol/L (3.5-5.1)
[2022-11-03] MEDS: methylPREDNISolone SOD SUCC 125 MG/2ML VIAL IV SCH ×3 (05:35→20:57)
[2022-11-03] MEDS ORDERED: SODIUM POLYSTYRENE SULFONATE 15 G/60 ML BOTTLE PO ONE (07:30)
[2022-11-03] MEDS: IV D5/0.45 NACL 1,000 ML IV PRN ×2 (07:35→19:08)
--- NOTE | 2022-11-03 07:45 | NUR ---
off bipap onto 2 lpm n/c. zero distress. internal revenue service agent aware
[2022-11-03] MEDS: ENSURE ENLIVE 237 ML LIQUID (VANILLA) PO SCH ×3 (07:53→16:37)
[2022-11-03] MEDS: QUETIAPINE FUMARATE 25 MG TABLET PO SCH ×2 (08:17→16:37)
[2022-11-03] MEDS: CITRIC ACID/SODIUM CITRATE (BICITRA)15 ML UDC PO SCH ×4 (08:17→20:57)
[2022-11-03] MEDS: FAMOTIDINE (20 MG) 20 MG TABLET PO SCH ×2 (08:17→20:57)
[2022-11-03] MEDS: SUCRALFATE 1 G TABLET PO SCH ×4 (08:17→21:28)
[2022-11-03] MEDS: THERAHONEY GEL 1.5 OZ TUBE TP SCH (08:18)
[2022-11-03 13:09] LABS: BASOPHILS % (AUTO) 0.1 % (0.0-2.0); HEMATOCRIT 22 % (39-51); HEMOGLOBIN 7.1 g/dL (13.5-17.5); LYMPHOCYTES # (AUTO) 0.6 K/uL (0.8-4.8); LYMPHOCYTES % (AUTO) 9.8 % (20.0-44.0); MEAN CORPUSCULAR HGB CONC 33 g/dl (31.0-36.0); MEAN CORPUSCULAR VOLUME 75 fL (80-96); MONOCYTES # (AUTO) 0.2 K/uL (0.1-1.30); MONOCYTES % (AUTO) 2.3 % (2.0-12.0); NEUTROPHILS # (AUTO) 5.8 K/uL (1.8-8.9); NEUTROPHILS % (AUTO) 87.8 % (43.0-81.0); PLATELET COUNT (AUTO) 120 K/uL (150-450); WHITE BLOOD COUNT (AUTO) 6.6 K/uL (4.3-11.0)
[2022-11-03 13:30] LABS: OCCULT BLOOD STOOL NEGATIVE (NEGATIVE)
--- NOTE | 2022-11-03 19:13 | NUR ---
RN CLOSING NOTES PT IS COMFORTABLE, NO COMPLAINT OF PAIN AT THIS TIME. WOUND CARE COMPLETED ON MY SHIFT, AND COLOSTOMY BAG CHANGED. PT'S BP HAS BEEN STABLE THROUGHOUT THE SHIFT. PT ABLE TO TOLERATE 2L NC SINCE BEING OFF BIPAP. GAVE REPORT TO ELO GILLETTE FOR CONTINUATION OF CARE.
--- NOTE | 2022-11-03 20:02 | NUR ---
DESIGN INSERTER. INITIAL ASSESSMENT. RECEIVED THE PT REST IN BED. AWAKE. ALERT. CONFUSED OXYGEN 2L VIA NASAL CANNULA. SAT 98%. NO ACUTE DISTRESS NOTED. SOCIAL WORKER SHOWING NSR. IV LT UPPER ARM MID LINE. IVF D51/2NS 75 ML/H. SUPRA PUBIC CATH INTACT.COLOSTOY BAG INTACT. WILL CONTINUE TO MONITOR VITALS.
--- NOTE | 2022-11-03 22:57 | NUR ---
PT PLACED ON NOC BIPAP.
--- NOTE | 2022-11-03 23:53 | NUR ---
Pt requested to be off bipap. Pt placed on 1L NC. Will continue to monitor RN aware.
[2022-11-04] VITALS (60 sets, daily range): BP systolic 60–169; BP diastolic 31–92
[2022-11-04] MEDS: IPRATROPIUM NEB FS 0.5 MG/2.5 ML AMPUL.NEB NEB SCH ×4 (01:17→19:32)
--- NOTE | 2022-11-04 03:59 | NUR ---
IT TRAINING SPECIALIST. AM CARE GIVEN. REMAINING SAME IVF D5 1/2NS 75 ML/H. HOB ELEVATED. CANDY PULLER SHOWING NSR, IV RT UPPER ARM MID LINE. TURN AND REPOSITION Q2H. SUPRA PUBIC CATH INTACT, WILL CONTINUE TO MONITOR VITALS
[2022-11-04 04:49] LABS: BASOPHILS % (AUTO) 0.2 % (0.0-2.0); LYMPHOCYTES # (AUTO) 0.4 K/uL (0.8-4.8); MEAN CORPUSCULAR HGB CONC 32 g/dl (31.0-36.0); MEAN CORPUSCULAR VOLUME 74 fL (80-96); MONOCYTES # (AUTO) 0.1 K/uL (0.1-1.30); MONOCYTES % (AUTO) 3.8 % (2.0-12.0); NEUTROPHILS # (AUTO) 3.2 K/uL (1.8-8.9); PLATELET COUNT (AUTO) 149 K/uL (150-450); RED BLOOD CELL COUNT(AUTO) 2.71 MIL/uL (4.5-6.0); WHITE BLOOD COUNT (AUTO) 3.8 K/uL (4.3-11.0)
[2022-11-04 04:56] LABS: HEMATOCRIT 20 % (39-51); HEMOGLOBIN 6.4 g/dL (13.5-17.5)
[2022-11-04 05:02] LABS: CALCIUM, SERUM 8.6 mg/dL (8.5-10.1); CREATININE 1.4 mg/dL (0.6-1.3); POTASSIUM 3.8 mmol/L (3.5-5.1)
[2022-11-04 05:22] LABS: GENTAMICIN,RANDOM 4.1 ug/ml (4.0-8.0)
[2022-11-04] MEDS: methylPREDNISolone SOD SUCC 125 MG/2ML VIAL IV SCH ×3 (05:37→21:58)
[2022-11-04] MEDS: IV D5/0.45 NACL 1,000 ML IV PRN ×2 (05:39→17:53)
[2022-11-04 05:57] LABS: BASOPHILS % (MANUAL) 0 % (0.0-2.0); EOSINOPHILS % (MANUAL) 1 % (0-4); LYMPHOCYTES % (MANUAL) 13 % (16-48); MONOCYTES % (MANUAL) 3 % (0-11.0); NEUTROPHILS % (MANUAL) 83 (42-76)
[2022-11-04] MEDS: SUCRALFATE 1 G TABLET PO SCH ×4 (07:57→21:59)
[2022-11-04] MEDS: ENSURE ENLIVE 237 ML LIQUID (VANILLA) PO SCH ×3 (08:17→17:51)
[2022-11-04] MEDS: CITRIC ACID/SODIUM CITRATE (BICITRA)15 ML UDC PO SCH ×4 (08:56→21:58)
[2022-11-04] MEDS: FAMOTIDINE (20 MG) 20 MG TABLET PO SCH ×2 (08:56→21:59)
[2022-11-04] MEDS: QUETIAPINE FUMARATE 25 MG TABLET PO SCH ×2 (08:56→17:50)
[2022-11-04] MEDS ORDERED: GENTAMICIN 80 MG in IV D5W 50 ML IV SCH (09:00)
[2022-11-04] MEDS: THERAHONEY GEL 1.5 OZ TUBE TP SCH (09:44)
--- NOTE | 2022-11-04 16:43 | NUR ---
SPOKE WITH [facility]. REGARDING PRBC ORDER AND PER [facility] " I WILL CALL YOU BACK." CHARGE NURSE-HUMA KENDRICK.
--- NOTE | 2022-11-04 17:05 | NUR ---
PER CHARGE NURSE-HUMA "I SPOKE WITH [facility] AND PRBC ORDER SHOWED CANCELLED AND I WILL REENTER THE PRBC PER MD ORDER."
--- NOTE | 2022-11-04 18:20 | NUR ---
AT 1815PM -NOTIFIED R.T. DEPT. PATIENT DESATURATING 70-80s %, INCREASED NC=5LPM; AT 1820PM PT. REMAINS 85% O2SAT, RT-KEVIN APPLIED BIPAP 25/5 FIO2=60%. Q4AKQ=03% AT THIS TIME. WILL CONTINUE TO MONITOR.
--- NOTE | 2022-11-04 18:25 | NUR ---
PER [facility]. "PRBC IS READY AND AVAILABLE.", CHARGE NURSE -HUMA WAS MADE AWARE AND PER HUMA "ENDORSE IT TO THE NIGHT RN TO BE TRANSFUSED," WILL ENDORSE TO ONCOMING RN-CEMENTER HELPER.
--- NOTE | 2022-11-04 19:15 | NUR ---
Pt is noted responsive with call light in reach and fall precaution in place as report is received from the off going nurse. Sinus Rhythm on the Tele monitor, Rhonchi Lungs sound with BiPAP therapy in progress and skin dry, warm with Generalize edema, skin areas noted, please see skin assessment in chart. Pt is noted Right Upper Arm Midline, Suprapubic Cath and Right ostomy noted. Pt care continue as he will be monitor closely.
--- NOTE | 2022-11-04 19:17 | NUR ---
ENDORSED TO PRADEEP LOBO REGARDING PRBC ORDER AND FOR CONTINUITY OF PATIENT CARE.
--- NOTE | 2022-11-04 22:30 | NUR ---
Pt remain full code as he is started on his 1unit off PRBC due to his H/H off 6.4/20. Pt care continue with no S/S off distress or Transfusion reaction noted at these hour. Pt care continue.
[2022-11-05] VITALS (55 sets, daily range): BP systolic 89–199; BP diastolic 41–110
--- NOTE | 2022-11-05 00:29 | NUR ---
Sinus Evaristo on the Tele monitor as 1unit off PRBC continue to Transfused with no S/S off distress or Transfusion reaction noted. Pt care continue as he is been monitor closely with BiPAP therapy in progress,
--- NOTE | 2022-11-05 01:28 | NUR ---
Pt has just completed his 1unit off PRBC with no S/S off distress or transfusion reactions noted. Pt care continue.
[2022-11-05] MEDS: IPRATROPIUM NEB FS 0.5 MG/2.5 ML AMPUL.NEB NEB SCH ×4 (01:50→19:40)
--- NOTE | 2022-11-05 04:53 | NUR ---
Pt care continue as he is been monitor closely with AM and woundcare done.
[2022-11-05] MEDS: methylPREDNISolone SOD SUCC 125 MG/2ML VIAL IV SCH ×3 (05:18→21:15)
[2022-11-05 05:24] LABS: CALCIUM, SERUM 8.5 mg/dL (8.5-10.1); CREATININE 1.3 mg/dL (0.6-1.3); POTASSIUM 3.7 mmol/L (3.5-5.1)
--- NOTE | 2022-11-05 06:00 | NUR ---
GENTAMICIN TROUGH LEVEL IS NOW TRENDING FROM 4.3 TO 2.4. PT CARE CONTINUE.
[2022-11-05] MEDS: SUCRALFATE 1 G TABLET PO SCH ×4 (07:20→21:16)
--- NOTE | 2022-11-05 07:22 | NUR ---
Pt care continue as report is given to the AM receiving nurse.
--- NOTE | 2022-11-05 07:58 | NUR ---
DR SHEIKH SEEN PATIENT.
[2022-11-05] MEDS: THERAHONEY GEL 1.5 OZ TUBE TP SCH (08:11)
[2022-11-05] MEDS: CITRIC ACID/SODIUM CITRATE (BICITRA)15 ML UDC PO SCH ×4 (08:11→21:16)
[2022-11-05] MEDS: FAMOTIDINE (20 MG) 20 MG TABLET PO SCH ×2 (08:11→21:16)
[2022-11-05] MEDS: ENSURE ENLIVE 237 ML LIQUID (VANILLA) PO SCH ×3 (08:11→17:35)
[2022-11-05] MEDS: QUETIAPINE FUMARATE 25 MG TABLET PO SCH ×2 (08:11→17:35)
[2022-11-05 08:34] LABS: BASOPHILS % (AUTO) 0.1 % (0.0-2.0); HEMATOCRIT 22 % (39-51); LYMPHOCYTES # (AUTO) 0.5 K/uL (0.8-4.8); LYMPHOCYTES % (AUTO) 12.3 % (20.0-44.0); MEAN CORPUSCULAR HGB CONC 32 g/dl (31.0-36.0); MEAN CORPUSCULAR VOLUME 76 fL (80-96); MONOCYTES # (AUTO) 0.2 K/uL (0.1-1.30); MONOCYTES % (AUTO) 5.7 % (2.0-12.0); NEUTROPHILS # (AUTO) 3.5 K/uL (1.8-8.9); NEUTROPHILS % (AUTO) 81.9 % (43.0-81.0); PLATELET COUNT (AUTO) 205 K/uL (150-450); RED BLOOD CELL COUNT(AUTO) 2.93 MIL/uL (4.5-6.0); WHITE BLOOD COUNT (AUTO) 4.3 K/uL (4.3-11.0)
[2022-11-05] MEDS ORDERED: GENTAMICIN 80 MG in IV D5W 50 ML IV SCH ×2 (09:00→12:00)
[2022-11-05] MEDS: IV D5/0.45 NACL 1,000 ML IV PRN (11:20)
--- NOTE | 2022-11-05 18:10 | NUR ---
1UNIT PRBC COMPLETED,TOTAL [id number]. NO ADVERSE REACTION NOTED. STABLE PATIENT.
[2022-11-06] VITALS (30 sets, daily range): BP systolic 65–209; BP diastolic 32–101
[2022-11-06] MEDS: IV D5/0.45 NACL 1,000 ML IV PRN ×2 (00:07→13:07)
--- NOTE | 2022-11-06 00:10 | NUR ---
ICU/PIANO SOUNDING BOARD MATCHER PT'S BP CONTINUES TO BE ELEVATED, CHARGE NURSE CALLED THE INCUBATOR MACHINE OPERATOR HERNANDO FOR PRN MEDIATION, HYDRALAZINE WAS ORDERED EVERY 6 HRS PRN FOR SBP GREATER THAN 170. THIS ORDER WAS RECIEVED AND ORDER CARRIED OUT.
[2022-11-06] MEDS: hydrALAZINE HCL IV 20 MG VIAL IV PRN (00:51)
[2022-11-06] MEDS: IPRATROPIUM NEB FS 0.5 MG/2.5 ML AMPUL.NEB NEB SCH ×4 (01:56→19:30)
[2022-11-06 05:10] LABS: BASOPHILS % (AUTO) 0.3 % (0.0-2.0); EOSINOPHILS % (AUTO) 0.1 % (0.0-6.0); HEMATOCRIT 26 % (39-51); HEMOGLOBIN 8.5 g/dL (13.5-17.5); LYMPHOCYTES # (AUTO) 0.5 K/uL (0.8-4.8); LYMPHOCYTES % (AUTO) 10.7 % (20.0-44.0); MEAN CORPUSCULAR HGB CONC 33 g/dl (31.0-36.0); MEAN CORPUSCULAR VOLUME 77 fL (80-96); MONOCYTES # (AUTO) 0.2 K/uL (0.1-1.30); NEUTROPHILS # (AUTO) 3.8 K/uL (1.8-8.9); NEUTROPHILS % (AUTO) 84.9 % (43.0-81.0); PLATELET COUNT (AUTO) 192 K/uL (150-450); RED BLOOD CELL COUNT(AUTO) 3.41 MIL/uL (4.5-6.0); WHITE BLOOD COUNT (AUTO) 4.5 K/uL (4.3-11.0)
[2022-11-06 05:17] LABS: CALCIUM, SERUM 8.3 mg/dL (8.5-10.1); CREATININE 1.3 mg/dL (0.6-1.3)
[2022-11-06] MEDS: methylPREDNISolone SOD SUCC 125 MG/2ML VIAL IV SCH ×3 (05:20→21:26)
[2022-11-06] MEDS: ENSURE ENLIVE 237 ML LIQUID (VANILLA) PO SCH ×3 (07:36→17:16)
[2022-11-06] MEDS: SUCRALFATE 1 G TABLET PO SCH ×4 (07:46→21:28)
--- NOTE | 2022-11-06 07:56 | NUR ---
RECEIVED VERBAL ORDER FROM DOCTOR SHEIKH. TANISHA TO PROGRESS DIET TO MECHANICAL SOFT. ORDER ENTERED INTO [employer]
[2022-11-06] MEDS: QUETIAPINE FUMARATE 25 MG TABLET PO SCH ×2 (08:25→17:29)
[2022-11-06] MEDS: FAMOTIDINE (20 MG) 20 MG TABLET PO SCH ×2 (08:25→21:26)
[2022-11-06] MEDS: CITRIC ACID/SODIUM CITRATE (BICITRA)15 ML UDC PO SCH ×4 (08:25→21:26)
[2022-11-06] MEDS: THERAHONEY GEL 1.5 OZ TUBE TP SCH (08:28)
--- NOTE | 2022-11-06 18:37 | NUR ---
PATIENT REMAINS IN STABLE CONDITION. TO BE TRANSFERRED TO [facility] ROOM 107 AT CHANGE OF SHIFT. WILL ENDORSE CARE TO NIGHTSHIFT [facility] NURSE.
--- NOTE | 2022-11-06 19:20 | NUR ---
RN NOTES RECEIVED PATIENT FROM ICU, A/O X 2 WITH PERIOD OD CONFUSION. ON NASAL CANULA @ 1LPM. NO SOB NOTED RESPIRATORY EVEN AND UNLABORED. NO SOB NOTED. NO S/S OF DISTRESS NOTED. AFEBRILE. NOTED WITH PAPA MIDLINE, SHANNA MIDLINE, FLUSHED WITH NS, NO S/S OF INFILTRATION NOTED RUNNING WITH D5 1/2 NS @ 75 ML/HR. WITH COLOSTOMY BAG, NO S/S OF DIARRHEA NOTED. SUPRA PUBIC CATHETER INTACT PATENT GRAINING WITH DARK YELLOW URINE OUTPUT. HEAD OF BED MAINTAIN ABOVE 40 DEGREE. ALL SAFETY PRECAUTION PROVIDED. BED IN LOWEST POSITION, LOCKED. CALL LIGHT WITH IN REACH.
[2022-11-07] VITALS: BP 153/92
[2022-11-07] MEDS: IPRATROPIUM NEB FS 0.5 MG/2.5 ML AMPUL.NEB NEB SCH ×4 (02:21→20:12)
[2022-11-07] MEDS: IV D5/0.45 NACL 1,000 ML IV PRN ×2 (02:33→15:38)
[2022-11-07 04:00] VITALS: BP 150/90
[2022-11-07] MEDS: methylPREDNISolone SOD SUCC 125 MG/2ML VIAL IV SCH ×3 (04:42→17:45)
[2022-11-07 06:37] LABS: MAGNESIUM 1.6 mg/dL (1.8-2.4); PHOSPHORUS 3.1 mg/dL (2.5-4.9); POTASSIUM 3.9 mmol/L (3.5-5.1)
--- NOTE | 2022-11-07 07:00 | NUR ---
RECEIVED REPORT FROM BIENVENIDO BRIONES. WILL CONTINUE PLAN OF CARE.
[2022-11-07] MEDS: ENSURE ENLIVE 237 ML LIQUID (VANILLA) PO SCH ×3 (07:53→17:45)
[2022-11-07] MEDS: SUCRALFATE 1 G TABLET PO SCH ×4 (07:55→21:14)
[2022-11-07 08:00] VITALS: BP 223/117
[2022-11-07] MEDS: QUETIAPINE FUMARATE 25 MG TABLET PO SCH ×2 (08:02→17:45)
[2022-11-07] MEDS: FAMOTIDINE (20 MG) 20 MG TABLET PO SCH ×2 (08:02→21:14)
[2022-11-07] MEDS: CITRIC ACID/SODIUM CITRATE (BICITRA)15 ML UDC PO SCH ×4 (08:02→21:14)
[2022-11-07] MEDS: hydrALAZINE HCL IV 20 MG VIAL IV PRN (08:25)
[2022-11-07] MEDS: THERAHONEY GEL 1.5 OZ TUBE TP SCH (08:26)
[2022-11-07 08:57] LABS: BASOPHILS % (AUTO) 0.2 % (0.0-2.0); HEMATOCRIT 27 % (39-51); HEMOGLOBIN 8.5 g/dL (13.5-17.5); LYMPHOCYTES # (AUTO) 0.5 K/uL (0.8-4.8); LYMPHOCYTES % (AUTO) 10.3 % (20.0-44.0); MEAN CORPUSCULAR HGB CONC 32 g/dl (31.0-36.0); MEAN CORPUSCULAR VOLUME 76 fL (80-96); MONOCYTES # (AUTO) 0.2 K/uL (0.1-1.30); MONOCYTES % (AUTO) 3.9 % (2.0-12.0); NEUTROPHILS # (AUTO) 3.9 K/uL (1.8-8.9); NEUTROPHILS % (AUTO) 85.6 % (43.0-81.0); PLATELET COUNT (AUTO) 269 K/uL (150-450); RED BLOOD CELL COUNT(AUTO) 3.49 MIL/uL (4.5-6.0); WHITE BLOOD COUNT (AUTO) 4.6 K/uL (4.3-11.0)
[2022-11-07] MEDS ORDERED: MAGNESIUM OXIDE 400 MG TABLET PO ONE (10:00)
[2022-11-07 12:00] VITALS: BP 109/50
[2022-11-07 16:00] VITALS: BP 150/80
--- NOTE | 2022-11-07 18:23 | NUR ---
PATIENT REMAINS IN STABLE CONDITION. ON 1 LITER NASAL CANULA, OXYGEN SATURATION GREATER THAN 92%. SINUS RHYTHM ON THE MONITOR AT THIS TIME. PATIENT ALERT AND ORIENTED TIMES 2, WITH PERIODS OF CONFUSION. COLOSTOMY DRAINING BROWN FORMED OUTPUT. SUPRAPUBLIC CATHETER DRAINING YELLOW OUTPUT. HOB MAINTAINED AT 40 DEGREES AT ALL TIMES. IV ACCESS' MAINTAINED ON LEFT AND RIGHT UPPER ARMS MIDLINE. FLUIDS INFUSING ORDERED. WILL ENDORSE PATIENT CARE TO LETA AGUIRRE FOR CONTINUATION OF CARE.
--- NOTE | 2022-11-07 19:05 | NUR ---
RN NOTES RECEIVED PATIENT ON BED , A/O X 2-3 WITH PERIOD OD CONFUSION. ON NASAL CANULA @ 1LPM. NO SOB NOTED RESPIRATORY EVEN AND UNLABORED. NO SOB NOTED. NO S/S OF DISTRESS NOTED. AFEBRILE. NOTED WITH PAPA MIDLINE, SHANNA MIDLINE, FLUSHED WITH NS, NO S/S OF INFILTRATION NOTED RUNNING WITH D5 1/2 NS @ 75 ML/HR. WITH COLOSTOMY BAG, NO S/S OF DIARRHEA NOTED. SUPRA PUBIC CATHETER INTACT PATENT GRAINING WITH DARK YELLOW URINE OUTPUT. HEAD OF BED MAINTAIN ABOVE 40 DEGREE. ALL SAFETY PRECAUTION PROVIDED. BED IN LOWEST POSITION, LOCKED. CALL LIGHT WITH IN REACH.
[2022-11-07 20:00] VITALS: BP 150/80
[2022-11-08] VITALS: BP 121/62
[2022-11-08] MEDS: IPRATROPIUM NEB FS 0.5 MG/2.5 ML AMPUL.NEB NEB SCH ×4 (02:19→19:57)
[2022-11-08 04:00] VITALS: BP 164/83
--- NOTE | 2022-11-08 07:30 | NUR ---
OPENING NITE RECEIVED PATIENT IN BED ASLEEP BUT AROUSABLE, ALERT, ORIENTED X3, NO SIGNS OF IN DISTRESS, UNLABORED BREATHING, SAFETY MEASURES APPLIED, BED IN LOW POSITION LOCKED, SIDE RAILS UPX3, CALL LIGHT WITHIN REACHED.
[2022-11-08] MEDS: SUCRALFATE 1 G TABLET PO SCH ×4 (07:54→21:08)
[2022-11-08 08:00] VITALS: BP 160/80
[2022-11-08] MEDS: ENSURE ENLIVE 237 ML LIQUID (VANILLA) PO SCH ×3 (08:06→16:21)
[2022-11-08] MEDS: CITRIC ACID/SODIUM CITRATE (BICITRA)15 ML UDC PO SCH ×4 (08:09→21:08)
[2022-11-08] MEDS: methylPREDNISolone SOD SUCC 125 MG/2ML VIAL IV SCH ×2 (08:09→16:21)
[2022-11-08] MEDS: FAMOTIDINE (20 MG) 20 MG TABLET PO SCH ×2 (08:09→21:08)
[2022-11-08] MEDS: QUETIAPINE FUMARATE 25 MG TABLET PO SCH ×2 (08:10→16:21)
[2022-11-08] MEDS: THERAHONEY GEL 1.5 OZ TUBE TP SCH (08:10)
[2022-11-08 10:06] LABS: BASOPHILS % (AUTO) 0.2 % (0.0-2.0); HEMATOCRIT 24 % (39-51); HEMOGLOBIN 7.6 g/dL (13.5-17.5); LYMPHOCYTES # (AUTO) 0.5 K/uL (0.8-4.8); LYMPHOCYTES % (AUTO) 9.6 % (20.0-44.0); MEAN CORPUSCULAR HGB CONC 32 g/dl (31.0-36.0); MEAN CORPUSCULAR VOLUME 77 fL (80-96); MONOCYTES # (AUTO) 0.4 K/uL (0.1-1.30); MONOCYTES % (AUTO) 8.1 % (2.0-12.0); NEUTROPHILS # (AUTO) 4.2 K/uL (1.8-8.9); NEUTROPHILS % (AUTO) 82.1 % (43.0-81.0); PLATELET COUNT (AUTO) 260 K/uL (150-450); RED BLOOD CELL COUNT(AUTO) 3.13 MIL/uL (4.5-6.0); WHITE BLOOD COUNT (AUTO) 5.2 K/uL (4.3-11.0)
[2022-11-08 10:48] LABS: CALCIUM, SERUM 7.9 mg/dL (8.5-10.1); CREATININE 1.1 mg/dL (0.6-1.3); POTASSIUM 3.7 mmol/L (3.5-5.1)
[2022-11-08 12:00] VITALS: BP 110/59
--- NOTE | 2022-11-08 12:58 | NUR ---
DISCONTINUE TRIAL WITHOUT OXYGEN SUPPORT, PATIENT IS SATTING 92-93% WITHOUT ANY DIFFICULTY BREATHING, DIRECTOR PERIOPERATIVE ZURDO INFORMED AND TALKED TO THE PATIENT.
[2022-11-08 16:00] VITALS: BP 152/77
--- NOTE | 2022-11-08 18:18 | NUR ---
INFORMED RT DEPARTMENT REGARDING PATIENT COMPLAINT OF SHORT OF BREATH, CHECK SATURATION IS 97% ON 2L/MIN.
--- NOTE | 2022-11-08 19:30 | NUR ---
MAJOR GIFTS OFFICER OPENING NOTE RECEIVED PATIENT IN BED, AWAKE, PT IS A/O X 3-4, ABLE TO VERBALIZE NEEDS. CURRENTLY ON NC @ 1LPM, TOLERATING WELL SATING @ 99%. NO S/SX OF ACUTE RESPI DISTRESS NOTED AT THIS TIME. NO SOB. BREATHING IS EVEN AND UNLABORED. ON RESIDENT PROGRAM SPECIALIST WITH CURRENT READING OF SR, HR IN 70s. NO PAIN OR DISCOMFORT PER PT. IV CCESS ON SHANNA AND PAPA ML, C/D/I. BOTH PATEN, INTACT AND FLUSHING WELL. CURRENTLY INFUSING D5 1/2 NS @ 75 CC/HR. SUPRAPUBIC CATHETER AND COLOSTOMY BAG NOTED WITH MINIMAL OUTPUT. ALL SAFETY MEASURES IN PLACE: BED IN LOWEST, LOCKED POSITION, SIDE RAILS UP X 2, CALL LIGHT AND TRAY TABLE WITHIN EASY REACH. WILL CONTINUE TO MONITOR.
[2022-11-08 20:00] VITALS: BP 147/84
--- NOTE | 2022-11-08 23:47 | NUR ---
RT pt off bipap. placed on 2LNC. no sob, no resp distress. rn aware
[2022-11-09] VITALS: BP 143/80
[2022-11-09] MEDS: IPRATROPIUM NEB FS 0.5 MG/2.5 ML AMPUL.NEB NEB SCH ×4 (01:57→18:30)
[2022-11-09 04:00] VITALS: BP 135/72
[2022-11-09] MEDS: IV D5/0.45 NACL 1,000 ML IV PRN (04:26)
--- NOTE | 2022-11-09 06:00 | NUR ---
MENTAL HEALTH CASE MANAGER CLOSING NOTE NO SIGNIFICANT CHANGE T/O THE NIGHT. PT IN STABLE CONDITION. A/O X2-3 WITH PERIODS OF CONFUSION NOTED. ALL DUE MEDS GIVEN. ALL NEEDS MET. PM CARE DONE. TURNED AND REPOSITIONED. WILL ENDORSE TO AM SHIFT NURSE FOR OLLIE.
--- NOTE | 2022-11-09 07:36 | NUR ---
DIRECTOR BIOLOGICS ONOTE RECEIVED PATIENT IN BED, AWAKE, PT IS A/O X2-3 , ABLE TO VERBALIZE NEEDS. CURRENTLY ON NC @ 1LPM, TOLERATING WELL . NO SOB. BREATHING IS EVEN AND UNLABORED. ON ADJUNCT FACULTY FOR MEDICAL TERMINOLOGY WITH CURRENT READING OF SR, HR 61 AT THIS TIME . NO PAIN OR DISCOMFORT PER PT. IV CCESS ON SHANNA AND PAPA ML, C/D/I. BOTH PATEN, INTACT AND FLUSHING WELL. CURRENTLY INFUSING D5 1/2 NS @ 75 CC/HR. SUPRAPUBIC CATHETER AND COLOSTOMY BAG NOTED WITH MINIMAL OUTPUT. ALL SAFETY MEASURES IN PLACE: BED IN LOWEST, LOCKED POSITION, SIDE RAILS UP X 2, CALL LIGHT WITHIN EASY REACH. WILL CONTINUE TO MONITOR.
[2022-11-09 08:00] VITALS: BP 148/85
[2022-11-09] MEDS: ENSURE ENLIVE 237 ML LIQUID (VANILLA) PO SCH ×3 (08:00→16:53)
[2022-11-09] MEDS: FAMOTIDINE (20 MG) 20 MG TABLET PO SCH ×2 (09:25→21:10)
[2022-11-09] MEDS: CITRIC ACID/SODIUM CITRATE (BICITRA)15 ML UDC PO SCH ×4 (09:25→21:10)
[2022-11-09] MEDS: methylPREDNISolone SOD SUCC 125 MG/2ML VIAL IV SCH (09:25)
[2022-11-09] MEDS: QUETIAPINE FUMARATE 25 MG TABLET PO SCH ×2 (09:25→16:53)
[2022-11-09] MEDS: SUCRALFATE 1 G TABLET PO SCH ×4 (09:25→21:10)
[2022-11-09] MEDS: THERAHONEY GEL 1.5 OZ TUBE TP SCH (09:26)
[2022-11-09 10:13] LABS: POTASSIUM 3.8 mmol/L (3.5-5.1)
[2022-11-09 12:00] VITALS: BP 145/68
--- NOTE | 2022-11-09 12:34 | NUR ---
MILITARY PAY CLERK NOTE PER DR SHEIKH OK TO STOP IVF NOTIFIED THAT VERY EDEMATOUS
--- NOTE | 2022-11-09 14:30 | NUR ---
WET PROCESS HEAD MILLER NOTE ROUNDS MADE ALL NEEDS ATTENDED. KEEP HOB ELEVATED AT ALL TIME, WILL MONITOR CLOSELY
[2022-11-09 16:00] VITALS: BP 139/66
[2022-11-09 16:30] LABS: BASOPHILS % (AUTO) 0.2 % (0.0-2.0); HEMATOCRIT 31 % (39-51); HEMOGLOBIN 9.8 g/dL (13.5-17.5); LYMPHOCYTES # (AUTO) 0.4 K/uL (0.8-4.8); LYMPHOCYTES % (AUTO) 7.7 % (20.0-44.0); MEAN CORPUSCULAR HGB CONC 32 g/dl (31.0-36.0); MEAN CORPUSCULAR VOLUME 78 fL (80-96); MONOCYTES # (AUTO) 0.3 K/uL (0.1-1.30); MONOCYTES % (AUTO) 4.5 % (2.0-12.0); NEUTROPHILS % (AUTO) 87.6 % (43.0-81.0); PLATELET COUNT (AUTO) 403 K/uL (150-450); RED BLOOD CELL COUNT(AUTO) 4.02 MIL/uL (4.5-6.0); WHITE BLOOD COUNT (AUTO) 5.7 K/uL (4.3-11.0)
--- NOTE | 2022-11-09 17:52 | NUR ---
NAVAL AIRCREWMAN HELICOPTER NOTE COLOSTOMY CHANGED , ALL NEEDS ATTENDED, WILL CONT TO MONITOR CLOSELY HG 9.8 PLATELETS 403 REPORTED TO ABIODUN PROGRESSIVE CARE NURSE ,NO NEW ORDER GIVEN AT THIS TIME
--- NOTE | 2022-11-09 18:20 | NUR ---
CLERICAL PROOFREADER NOTE PATIENT IN BED ,ALERT AWAKE ON 2L NC ,NO SOB NOTED AT THIS TIME, ON TELE MONITOR HR 61 , RT UPPER ARM AND LT UPPER MID LINE INTACT AND FLUSHED WELL ,BED IN LOWEST AND LOCKED POSITION, WITH COLOSTOMY BAG WITH YELLOW COLOR STOOL NOTED , KEEP CLEAND RY , CALL LIGHT WITHIN REACH , WITH F GENERAL EDEMA ,KEEP UPPER AND LOWER EXTREMITIES ELEVATED TOLERATED, SAFETY MEASURE IMPLEMENTED, WILL CONT TO MONITOR
--- NOTE | 2022-11-09 19:57 | NUR ---
RN Opening Notes Received pt in bed, awake. AOx2, able to make needs known. On NC 2LPM and tolerating well. Tele monitor detects SR with rate of 77. IV access in SHANNA and PAPA Midline #[id number]. IV is intact, patent, and flushing well. Safety precautions in place: bed in lowest, locked position, siderails upX2, and brakes on. Table and call light within reach. All needs met at this time.
[2022-11-09 20:00] VITALS: BP 96/62
[2022-11-10] VITALS: BP 99/60
[2022-11-10] MEDS: IPRATROPIUM NEB FS 0.5 MG/2.5 ML AMPUL.NEB NEB SCH ×4 (00:35→20:06)
[2022-11-10 04:00] VITALS: BP 96/60
--- NOTE | 2022-11-10 05:00 | NUR ---
RT NOTE LATE ENTRY Pt refused bipap throughout the night. Pt awake and alert and able to tolerate 2LPM. rn aware Addendum: 11/11/22 at 0641 by UMA HERNÁNDEZ RT Wrong date entered. correct date is 11/11/22 @ 7635
--- NOTE | 2022-11-10 06:42 | NUR ---
RN Closing Notes Pt in bed, awake, watching TV. AOx1, able to make needs known. On NC 2LPM and tolerating well. Tele monitor detects SR. IV access in SHANNA and PAPA Midline #18G. IV is intact, patent, and flushing well. All orders carried out. All needs met. Pt kept clean and dry. Safety precautions in place: bed in lowest, locked position, siderails upX2, and brakes on. Table and call light within reach. Will endorse to oncoming shift for OLLIE.
--- NOTE | 2022-11-10 07:30 | NUR ---
OPENING NOTE RECEIVED PATIENT IN BED RESTING, AWAKE, ALERT, ORIENTEDX3, NO SIGNS OF IN DISTRESS , NO COMPLAINT OF PAIN, SAFETY MEASURES IN PLACED, BED IN LOW POSITION LOCKED, SIDE RAILS UPX3, CALL LIGHT WITHIN REACHED.
[2022-11-10] MEDS: SUCRALFATE 1 G TABLET PO SCH ×4 (07:41→21:28)
[2022-11-10 08:00] VITALS: BP 157/85
[2022-11-10] MEDS: FAMOTIDINE (20 MG) 20 MG TABLET PO SCH ×2 (08:06→21:28)
[2022-11-10] MEDS: QUETIAPINE FUMARATE 25 MG TABLET PO SCH ×2 (08:06→16:24)
[2022-11-10] MEDS: CITRIC ACID/SODIUM CITRATE (BICITRA)15 ML UDC PO SCH ×4 (08:06→21:28)
[2022-11-10] MEDS: THERAHONEY GEL 1.5 OZ TUBE TP SCH (08:06)
[2022-11-10] MEDS: ENSURE ENLIVE 237 ML LIQUID (VANILLA) PO SCH ×3 (08:07→16:24)
[2022-11-10] MEDS: methylPREDNISolone SOD SUCC 125 MG/2ML VIAL IV SCH (08:08)
[2022-11-10] MEDS ORDERED: BACL10TA PO (08:36)
[2022-11-10] MEDS ORDERED: FAMO20TA80 PO (08:36)
[2022-11-10] MEDS ORDERED: CITR15SO PO (08:36)
[2022-11-10] MEDS ORDERED: SUCR1TAB31 PO (08:36)
[2022-11-10] MEDS ORDERED: PRED5TAB PO (08:36)
[2022-11-10] MEDS ORDERED: Quetiapine Fumarate PO (08:36)
[2022-11-10] MEDS ORDERED: QUET25TA PO (09:31)
--- NOTE | 2022-11-10 14:38 | NUR ---
PER PHYSICIAN OFFICE SECRETARY PENDING DISCHARGE.
[2022-11-10 16:00] VITALS: BP 106/60
--- NOTE | 2022-11-10 18:48 | NUR ---
CLOSING NOTE; PATIENT IS RESTING IN BED COMFORTABLY, NON VERBAL BUT RESPONSE TO STIMULI, NO SIGNS OF IN DISTRESS, ON VENTILATOR WITH FIO2 30%, 100% SPO2, GTUBE IS INFUSING WELL WITH 65ML/HR, SAFETY MEASURES IN PLACE, BED IN LOW POSITION LOCKED, SIDE RAILS UPX3, CALL LIGHT WITHIN REACH. Addendum: 11/10/22 at 1859 by GRAND HARSHAL GILLETTE CLOSING NOTE PATIENT IS IN BED RESTING COMFORTABLY, NO SIGNS OF IN DISTRESS, NO COMPLAINT OF PAIN, UNLABORED BREATHING ON 2L/MIN OF O2, SAFETY MEASURES ARE IN PLACE, BED IN LOW POSITION LOCKED, SIDE RAILS UPX3, CALL LIGHT WITHIN REACH.
--- NOTE | 2022-11-10 19:31 | NUR ---
Aisha goodman called verbalized the caregiver left and nobody at home to received patient.[facility] notiief hold transfer ,nursing sup notified,will ff. up in am with victoriano weinstein.
--- NOTE | 2022-11-10 19:43 | NUR ---
RN NOTES [facility] delivered BIPAP for the patient and instructions given patient. Transportation also came to lease picker patient but nobody home to receive him. Spoke to caregiver Jailene, she already went home since she has been waiting all day for DME and patient. Spoke to maria isabel Leonard, she is out of town. Transportation cancelled. Dino, manager data warehouse and [employer] notified. Explained to patient and also discussed with him about rehab placement; per patient he will consider it. Will notify upper caser in AM. Primary RN Gladys made aware Addendum: 11/10/22 at 2005 by DEVIN JIMENEZ RN [facility] called; spoke to Primary RN notified them reason why patient was not discharged
--- NOTE | 2022-11-10 19:50 | NUR ---
MS RN NOTES RECEIVED LYING ON BED,A/O X1,BREATHING EASY,NO SOB,O2 2 L IN USED TO KEEP O2 SAT ABOVE 90%,QUADREPLEGIC,WITH SUPRAPUBIC CATHETER IN PLACE, DRAINS ADEQUATE OUTPUT.WITH RIGHT AND LEFT MIDLINE FOR MEDS.D/C PLAN WAS HELD TILL TOMORROW,NO CAREGIVER,FAMILY MEMBER TO RECEIVE PATIENT.WILL CONTINUE PLAN OF CARE.
--- NOTE | 2022-11-10 19:55 | NUR ---
MS RN NOTES SPOKE TO RAÚL FROM [facility],MADE AWARE THAT NOBODY AT HOME WILL RECEIVE THE PATIENT,PLACE AMBULANCE ON WILL CALL STATUS. FOR TOMORROW
[2022-11-10 20:00] VITALS: BP 165/82
--- NOTE | 2022-11-11 00:30 | NUR ---
MS RN NOTES BP 190/98, HR-91,MEDICATED WITH HYDRALAZINE 10MG IV ORDERED.WILL CONTINUE TO MONITOR
[2022-11-11] MEDS: hydrALAZINE HCL IV 20 MG VIAL IV PRN (00:48)
[2022-11-11] MEDS: IPRATROPIUM NEB FS 0.5 MG/2.5 ML AMPUL.NEB NEB SCH ×3 (01:30→13:28)
[2022-11-11 04:00] VITALS: BP 190/98
--- NOTE | 2022-11-11 05:30 | NUR ---
MS RN NOTES LATEST BP 160/84,DENIES ANY DISCOMFORTS.PER RT,PATIENT REFUSED BIPAP AT NIGHT,COMMENTED HE CANT SLEEP WITH IT.
--- NOTE | 2022-11-11 06:43 | NUR ---
MS RN NOTES POSSIBLE DISCHARGE TODAY.WILL CALL FOR TRANSPORT.ENDORSED TO DAY NURSE FOR OLLIE,
[2022-11-11] MEDS: ENSURE ENLIVE 237 ML LIQUID (VANILLA) PO SCH ×2 (07:47→11:25)
[2022-11-11] MEDS: SUCRALFATE 1 G TABLET PO SCH ×2 (07:47→11:25)
[2022-11-11 08:00] VITALS: BP 104/65
[2022-11-11] MEDS: methylPREDNISolone SOD SUCC 125 MG/2ML VIAL IV SCH (08:11)
[2022-11-11] MEDS: CITRIC ACID/SODIUM CITRATE (BICITRA)15 ML UDC PO SCH ×2 (08:12→12:03)
[2022-11-11] MEDS: QUETIAPINE FUMARATE 25 MG TABLET PO SCH (08:12)
[2022-11-11] MEDS: FAMOTIDINE (20 MG) 20 MG TABLET PO SCH (08:12)
[2022-11-11] MEDS: THERAHONEY GEL 1.5 OZ TUBE TP SCH (08:12)
--- NOTE | 2022-11-11 15:11 | NUR ---
PATIENT DISCHARGED TO HOME VIA AMBULANCE IN STABLE CONDITION, IV LINES DISCONTINUE.
[2022-11-14] MEDS ORDERED: TDAP [DIPH/PERTUSSIS/TET] 0.5 ML VIAL IM ONE (13:40)
[2022-11-14] MEDS ORDERED: SULFAMETH/TRIMETH 800/160 MG 1 UDTAB TABLET ONE (17:03)
== END 2022-11-11 15:05 | disposition home or self-care (01) | DRG 853 ==
LOC: ER 16:57 → MED 21:54 → ICU 10-23 05:57 → TELE-TD 11-06 19:07 → TELE1 11-07 14:17 → MEDSG1 11-10 16:05
PROVIDERS: ADMIT Nurse Practitioner Acute Care
PROC: 0KBN0ZZ Excision of Right Hip Muscle, Open Approach (ICD-10-PCS; principal; 2022-10-19)
PROC: 05HA33Z Insertion of Infusion Device into Left Brachial Vein, Percutaneous Approach (ICD-10-PCS; 2022-10-23)
PROC: 5A09457 Assistance with Respiratory Ventilation, 24-96 Consecutive Hours, Continuous Positive Airway Pressure (ICD-10-PCS; 2022-10-23)
PROC: 05HA33Z Insertion of Infusion Device into Left Brachial Vein, Percutaneous Approach (ICD-10-PCS; 2022-10-25)
PROC: 30233R1 Transfusion of Nonautologous Platelets into Peripheral Vein, Percutaneous Approach (ICD-10-PCS; 2022-10-27)
PROC: 30233N1 Transfusion of Nonautologous Red Blood Cells into Peripheral Vein, Percutaneous Approach (ICD-10-PCS; 2022-11-02)
PROC: 0DH63UZ Insertion of Feeding Device into Stomach, Percutaneous Approach (ICD-10-PCS; 2022-11-08)
PROC: 0KBN0ZZ Excision of Right Hip Muscle, Open Approach (ICD-10-PCS; 2022-11-09)
DX: A41.59 Other Gram-negative sepsis (principal); E43 Unspecified severe protein-calorie malnutrition; I50.43 Acute on chronic combined systolic (congestive) and diastolic (congestive) heart failure; J15.6 Pneumonia due to other Gram-negative bacteria; L89.314 Pressure ulcer of right buttock, stage 4; N17.0 Acute kidney failure with tubular necrosis; R53.2 Functional quadriplegia; R65.21 Severe sepsis with septic shock; J69.0 Pneumonitis due to inhalation of food and vomit; J96.01 Acute respiratory failure with hypoxia; G92.8 Other toxic encephalopathy; G82.50 Quadriplegia, unspecified; J96.02 Acute respiratory failure with hypercapnia; N39.0 Urinary tract infection, site not specified; E87.20 Acidosis, unspecified; N13.2 Hydronephrosis with renal and ureteral calculous obstruction; D61.818 Other pancytopenia; E27.40 Unspecified adrenocortical insufficiency; E87.1 Hypo-osmolality and hyponatremia; E87.0 Hyperosmolality and hypernatremia; E87.29 Other acidosis; J44.0 Chronic obstructive pulmonary disease with (acute) lower respiratory infection; K59.2 Neurogenic bowel, not elsewhere classified; R64 Cachexia; I48.0 Paroxysmal atrial fibrillation; Z87.440 Personal history of urinary (tract) infections; D50.9 Iron deficiency anemia, unspecified; Z93.3 Colostomy status; B96.4 Proteus (mirabilis) (morganii) as the cause of diseases classified elsewhere; E83.39 Other disorders of phosphorus metabolism; E83.42 Hypomagnesemia; E86.1 Hypovolemia; E88.09 Other disorders of plasma-protein metabolism, not elsewhere classified; F29 Unspecified psychosis not due to a substance or known physiological condition; K29.70 Gastritis, unspecified, without bleeding; K82.8 Other specified diseases of gallbladder; N18.9 Chronic kidney disease, unspecified; N31.9 Neuromuscular dysfunction of bladder, unspecified; R13.10 Dysphagia, unspecified; R62.7 Adult failure to thrive; Z93.0 Tracheostomy status; Z93.59 Other cystostomy status; Z88.1 Allergy status to other antibiotic agents; Z91.040 Latex allergy status; S14.109S Unspecified injury at unspecified level of cervical spinal cord, sequela; X58.XXXS Exposure to other specified factors, sequela
CPT/HCPCS: 36410; 36415; 36600; 71045-TC; 76700-TC; 80048-TC; 80053-TC; 80061-TC; 80170-TC; 80202-TC; 81001; 82247-TC; 82248-TC; 82272-TC; 82533; 82570-TC; 82607-TC; 82728-TC; 82784; 82803-TC; 82962-TC; 83540-TC; 83605-TC; 83735-TC; 84100-TC; 84155; 84165; 84300-TC; 84443-TC; 85025-TC; 85396; 85610-TC; 85730-TC; 86140-TC; 86225; 86235; 86334; 86431-TC; 86706; 86803; 86850-TC; 87040-TC; 87081-TC; 87086-TC; 87340; 87806; 92526; 92611-TC; 93307-TC; 94660; 94799-TC; A4216; A4223; A6403; A9563; C9113; C9803; G0378; J0360; J0744; J1580; J1956; J2185; J2270; J2370; J2930; J3370; J3475; J3490; J7030; J7040; J7042; J7050; J7060; P9016; P9034